=== PATIENT | female | born 1995 | race Caucasian/White ===

== ENCOUNTER 2025-03-20 05:28 | Emergency (ER) | payer MEDICAID ==
[~2025-03-20] VITALS: Ht 167.6 cm; Wt 57.3 kg
[~2025-03-20 05:28] MED LIST: DULO60CA65 PO; LACT1CAP26 PO
--- NOTE | 2025-03-20 05:56 | Physician Documentation ---
History of Present Illness ~ Chief Complaint: Abdominal Pain w/vomiting Stated Complaint: ABD PAIN Time Seen by MD: 05:51 HPI Patient presents to the emergency room with chief complaint of abdominal pain. She has trying to hit the nurses and smacked her face on the railing because she can not take it anymore she states she would rather jump in front of a car. History limited secondary to patient's combative nature. Additional note by Kervin York DO: I took over the care of this patient from previous physician. I reviewed any previous notes available, obtain my own history, review of systems and physical examination was performed by myself. History, review of systems, physical examination are limited due to patient's clinical condition. This is a 30-year-old female who lives in [place], visiting family here, brought in by ambulance after she had a seizure-like activity while visiting relatives. She states that she does have known history of psychogenic nonepileptic seizures, for which he takes Librium. No antiepileptic medications. It is not clear what provoked his seizure-like activity, however the patient was not postictal at any point. She reports diffuse abdominal pain, moderate to severe in its intensity, chronic, does report history of chronic constipation after cholecystectomy. Reports recent admission to hospital in [place] when she states five days there. The particular palliating or aggravating factors. She treats it with the pain medication as well as ketamine that has been prescribed to her as part of for pain management. This does not seem to be helping. That the pain is so severe that she is now feeling suicidal. Would not elaborate on the plan. Evidently told the previous provider that she would rather jumped in front of the vehicle. She tells me that she does not drink, does not smoke, does not do drugs. Medication Reconciliation Allergies: Coded Allergies: bupropion (Verified Allergy, Intermediate, BAD THOUGHTS AND RASH, 03/20/25) furosemide (Verified Allergy, Unknown, 03/20/25) gluten (Unverified Allergy, Unknown, 03/20/25) ketorolac (Verified Allergy, Unknown, 03/20/25) Uncoded Allergies: WELBUTRIN (Allergy, Unknown, 03/20/25) Scheduled Duloxetine HCl (Duloxetine HCl), 60 MG PO DAILY, (Reported) Lactobacillus Rhamnosus (Culturelle), 10,000 MMU PO TID@0830,1230,1730 Review of Systems ROS Review of systems limited secondary to patient's clinical condition Physical Exam Vital Signs: Heart Rate: 68, Respiratory Rate: 16, BP: 116/65, Pulse Oximetry: 99, Weight: 57.270 Physical Exam GENERAL: Awake, alert, oriented, GCS 15, no apparent distress, non-toxic appearing, answers questions in the rather limited fashion, does not not follows commands appropriately. Initial examined in bed 2., was placed in bed 16. For close observation HEENT: Atraumatic, normocephalic, pupils equal, extraocular muscles intact, sclerae anicteric, mucus membranes moist, oropharynx is clear, no stridor. NECK: supple, full active range of motion, trachea midline, no thyromegaly, no lymphadenopathy, no JVD. CARDIOVASCULAR: regular rate/rhythm, no murmurs/gallops/rubs, Pulses are 2+ in all extremities and symmetric. Capillary refill less than 2 seconds. PULMONARY: Nonlabored, good air movement ,no respiratory distress, speaking in full sentences, clear to auscultation bilaterally, no wheezing, no ronchi, no rales, no accessory muscle use. GASTROINTESTINAL: Soft, non-tender, non-distended, normal active bowel sounds, no organomegaly, no pulsatile masses, no CVA tenderness. NEUROLOGIC: Lucid with normal mental status. Normal facial symmetry. Moves all extremities symmetrically and with purpose. No truncal ataxia. Speech is fluid without evidence of dysarthria or aphasia, no focal deficits appreciated. MUSCULOSKELETAL: There is full range of motion of all extremities. There is no joint pain or joint swelling or joint erythema. There is no muscle pain or tenderness or swelling. EXTREMITIES: warm, well-perfused, no cyanosis, no clubbing, no edema, no acute deformities. Skin: warm, dry, no rashes or lesions, no jaundice, no petechiae orpurpura. No ecchymosis. PSYCHIATRIC: Hostile affect, poor insight, poor concentration. Focused exam: [Actively suicidal, attempts to hit her head or her knees, climb out of bed, fight nurses, hit nurses] Progress Results/Orders Results/Orders Orders - GERMAIN CARVER MD Saline Lock (03/20/25 05:33) Straight Cath For Urine Sample (03/20/25 05:33) Type And Screen (03/20/25 05:42) Med Rec (03/20/25 05:52) 1799.11 (03/20/25 05:52) Close Observation Level (03/20/25 05:52) Covid19 Binax Poc Result Entry (03/20/25 05:52) Substance Use Navigator (03/20/25 05:52) Regular Diet (03/20/25 Breakfast) Acetaminophen 325mg Tablet (Tylenol Tabl (03/20/25 18:50) Ibuprofen Tablet (Motrin Tablet) (03/20/25 18:54) Completed Orders - GERMAIN CARVER MD Hcg, Ur Ql (03/20/25 05:33) Cbc/Diff (03/20/25 05:33) Lipase (03/20/25 05:33) CMP (03/20/25 05:33) Drug Screen, Urine (03/20/25 05:52) Ethanol (03/20/25 05:52) TSH (03/20/25 05:52) BMP (03/20/25 05:52) Haloperidol Lact. (Haldol) (03/20/25 05:55) Lorazepam Inj (Ativan Inj) (03/20/25 05:55) Diphenhydramine Inj (Benadryl Inj.) (03/20/25 05:55) Ua W/Microscopic, Cult If Ind (03/20/25 10:54) Ibuprofen Tablet (Motrin Tablet) (03/20/25 18:50) Medications Received in ER Medications (Trade) Dose Ordered Sig/Mahnaz Route PRN Reason Start Time Stop Time Status Last Admin Dose Admin (Haldol) 5 mg ONCE ONCE IM 03/20/25 11:00 03/20/25 11:04 DC 03/20/25 11:09 5 MG (Ativan inj) 2 mg ONCE ONCE IM 03/20/25 11:00 03/20/25 11:04 DC 03/20/25 11:09 2 MG (Dilaudid inj.) 1 mg ONCE ONCE IV 03/20/25 11:25 03/20/25 11:27 DC 03/20/25 11:45 1 MG (Dilaudid inj.) 1 mg ONCE ONCE IV 03/20/25 15:35 03/20/25 15:37 DC 03/20/25 15:42 1 MG Vital Signs 03/20/25 03/20/25 03/20/25 03/20/25 05:32 05:42 06:00 06:49 Temp 98.6 Pulse 68 68 57 Resp 16 16 16 18 B/P (MAP) 116/65 116/65 (82) 115/75 (88) Pulse Ox 99 99 100 O2 Flow Rate 0 03/20/25 03/20/25 03/20/25 03/20/25 06:49 07:44 08:00 08:15 Temp 98.6 Pulse 57 62 57 80 Resp 18 20 17 14 B/P (MAP) 115/75 (88) 115/74 (88) 119/74 (89) 111/74 (86) Pulse Ox 100 100 100 100 O2 Flow Rate 0 0 03/20/25 03/20/25 03/20/25 03/20/25 08:21 08:30 08:45 09:00 Temp 98.6 98.6 98.6 Pulse 86 73 64 Resp 20 12 21 20 B/P (MAP) 119/70 (86) 109/68 (82) 115/81 (92) Pulse Ox 99 100 98 O2 Flow Rate 0 0 0 03/20/25 03/20/25 03/20/25 03/20/25 09:08 09:51 11:55 12:10 Pulse 76 69 98 108 Resp 10 13 21 18 B/P (MAP) 115/81 (92) 121/73 (89) 96/59 (71) 97/59 (72) Pulse Ox 99 99 96 95 03/20/25 03/20/25 03/20/25 03/20/25 12:25 12:33 12:45 13:02 Temp 98.0 98.0 Pulse 99 105 97 102 Resp 18 12 17 12 B/P (MAP) 96/64 (75) 96/64 (75) 101/67 (78) Pulse Ox 97 97 96 99 O2 Flow Rate 0 0 0 03/20/25 03/20/25 03/20/25 03/20/25 13:55 14:09 15:25 15:42 Pulse 92 89 111 Resp 18 17 18 11 B/P (MAP) 99/67 (78) 107/68 (81) 94/56 (69) Pulse Ox 98 98 98 O2 Flow Rate 0 03/20/25 15:43 Pulse 86 Resp 10 B/P (MAP) 100/63 (75) Pulse Ox 98 Laboratory Tests Test 03/20/25 07:00 03/20/25 10:54 White Blood Count 6.5 Red Blood Count 3.08 L Hemoglobin 8.7 L Hematocrit 27.4 L Mean Corpuscular Volume 89.0 Mean Corpuscular Hemoglobin 28.3 Mean Corpuscular Hemoglobin Concent 31.8 L Red Cell Distribution Width 20.4 H Platelet Count 290 Mean Platelet Volume 8.4 Neutrophils (%) (Auto) 70.7 Lymphocytes (%) (Auto) 22.4 Monocytes (%) (Auto) 5.1 Eosinophils (%) (Auto) 0.9 Basophils (%) (Auto) 0.9 Neutrophils # (Auto) 4.6 Lymphocytes # (Auto) 1.5 Monocytes # (Auto) 0.3 Eosinophils # (Auto) 0.1 Basophils # (Auto) 0.1 CBC Comment Platelet Estimate Normal Large Platelets Few Red Blood Cell Morphology Perf Hypochromasia 1+ Basophilic Stippling Anisocytosis 3+ Sodium Level 144 Potassium Level 3.3 L Chloride Level 108 H Carbon Dioxide Level 24.6 Anion Gap 11 Blood Urea Nitrogen 8 Creatinine 0.68 Estimated GFR/1.73 m2 > 90 BUN/Creatinine Ratio 11.8 Glucose Level 122 H Calcium Level 8.3 L Total Bilirubin 0.3 Aspartate Amino Transf (AST/SGOT) 18 Alanine Aminotransferase (ALT/SGPT) 22 Alkaline Phosphatase 85 Total Protein 6.8 Albumin 3.6 Globulin 3.2 Albumin/Globulin Ratio 1.1 Lipase 18 Thyroid Stimulating Hormone (TSH) 0.38 Chemistry Comments Ethyl Alcohol Level 131 H Urine Specimen Description Non-specified Urine Color Straw Urine Clarity Cloudy Urine pH 6.5 Urine Specific Parker 1.020 Urine Protein Negative Urine Glucose (UA) Negative Urine Ketones Trace H Urine Occult Blood Negative Urine Nitrite Negative Urine Bilirubin Negative Urine Urobilinogen 0.2 Urine Leukocyte Esterase Negative Urine RBC 3-10 Urine WBC 0-4 Urine Squamous Epithelial Cells Many Urine Transitional Epithelial Cells Moderate Urine Bacteria 1+ Urine Culture Indicated Not ind Volume Urine Centrifuged 10 ml Urine HCG, Qualitative Negative Urine Comment Urine Opiates Screen Positive Urine Methadone Screen Negative Urine Fentanyl Screen Negative Urine Barbiturates Screen Negative Urine Phencyclidine Screen Negative Urine Amphetamines Screen Negative Urine Benzodiazepines Screen Positive Urine Cocaine Screen Negative Urine Cannabinoids Screen Drug Screen Comment EKG/XRAY/CT/US/VASC/MRI EKG : Additional Comment EKG was obtained and interpreted by myself shows sinus arrhythmia, CT interval of 108, narrow QRS, no QT prolongation, normal axis, no STEMI. Medical Decision Making Findings Patient presents to the emergency room with chief complaint of abdominal pain as well as suicidal ideation secondary to the abdominal pain. Patient is swinging at our nurses in his requiring B 52 along with restraints. She does endorse some degree of suicidality therefore 1798 placed. Oncoming doctor to follow up labs and medical clearance. Facility Status: ED Holds, RME process The plan was discussed with the patient, who demonstrates clear understanding of the plan and is in agreement with the plan unless otherwise noted in the chart. All questions have been answered, all concerns were addressed unless otherwise documented. I was available throughout their ED stay for frequent reassessment and questions. Differential Diagnoses (considered and possible or likely): [With respect to abdominal pain, Differential diagnosis considered includes acute appendicitis, acute cholecystitis, pancreatitis, gastritis, PUD, diverticulitis, mesenteric ischemia, abdominal aortic aneurysm, bowel obstruction, enteritis, colitis, fecal impaction, volvulus, IBS, inflammatory bowel disease, specific food intolerance, peritonitis, perforated viscous, malignancy, UTI, abscess, and abdominal pain NOS. Pelvic source of pain was also considered including en dometritis, dysmenorrhea, ovarian cyst, ovarian torsion, PID, TOA, cervicitis, vaginitis, or uterine fibroid. History, physical exam, and workup exclude many of the more serious causes listed above. Unfortunately patient also make suicidal statements. As noted above she required chemical restraints, physical restraints, she has a plan for suicidal attempt of walking into traffic. She was placed on 1798.] ??Differential Diagnoses (considered and unlikely, not requiring evaluation cu rrently): [See above] MDM Data Please see HPI for the following: Independent Historians and external Records Review. Historian: [Patient] Independent Historians: ?[Record review was requested from [facility] in [facility]] Medication Management: [Reviewed medication list] Social History and determinants: [Reviewed] Please see the body of the note for the following: Any independent interpretations of ECG, imaging studies. All vitals signs/haemodynamics, ordered tests were independently reviewed and interpreted by myself. Nursing triage complaint and vitals reviewed, additional nursing notes were reviewed as available and I agree unless otherwise noted or documented in contradiction in the chart Vital Signs: Independently reviewed Labs: Independently interpreted Imaging: Independently interpreted Old Medical Records: Independently reviewed, see HPI for relevant summary and information Pulse Oximetry: [100%] interpreted as [normal on room air] by me [Classification Analyst: [Regular Rate, Regular rhythm, no ectopy, NSR] reviewed and interpreted by me] Additionally notably showing: [Hemodynamics reviewed. The patient isn't febrile, not tachycardic, no evidence of hypotension respiratory distress. Laboratory studies show anemia of 8.7, normal platelets, normal white count. No neutrophilic predominance. Chemistry shows a very mild hypokalemia 3.3. Glucose is elevated in the dietary arrange. Lipase is normal. Thyroid studies are normal. Unfortunately despite patient denied use of alcohol her ethanol is 131. She is legally intoxicated. Patient is positive for benzodiazepines and opioids as expected ] Tests considered but not ordered include: [Imaging does not appear to be necessary] Social Determinants of Health Impact: [facility] with limited access to healthcare due to below par ratio of patient to medical providers. [] Comorbid Conditions Impacting Present Evaluation and Care/Treatment: [Chronic pain, opioid addiction, chronic pancreatitis, pseudoseizures] Management Discussions with other Healthcare Providers: [Mental health consult] Treatment and Disposition Medication Management (Given or considered): [Pain management, palliation of agitation]. See EMR for details Consideration for Hospitalization/Escalation/Deescalation of Care: Admission for observation has been considered, [however the patient is able to tolerate p.o., their symptoms are controlled, they are able to rely on oral medications, and their chief complaint/diagnosis can be managed on outpatient basis.] ?ED Course:?[We were able to obtain a discharge summary [facility]. The patient has known diagnosis of chronic pancreatitis, continuous opioid de pendence, she was admitted of the time for acute pancreatitis. Evidently she also has a known history of celiac disease, cannabinoid hyperemesis, alcohol use disorder. She had undergone a very extensive workup including MRI, based on elevated lipase, and diagnosed with a acute on chronic pancreatitis. She was seen by GI, undergone he you as. She required it very extensive pain palliation due to her-pain requirements. She also had a CT angio which was negative for PE.] Eventually patient was allowed to be out of restraints and behavior herself. I think all of her behavioral agitation related to her addiction to opioids and her chronic pain. Patient is medically cleared for psychiatric evaluation ?Shared decision making:?[] Code status:?FULL Please see the full Electronic Medical Record for full details of nursing documentation, medications list, other records of complete past medical history and conditions, vital signs, laboratory studies, and any radiologic study interpretations by radiologists. Portions of this note were completed using [employer] dictation software and as a result there may exist minor errors in spelling. I have reviewed elements of past family and social history and agree as included in note. Departure Disposition: 30 STILL A PATIENT Impression: Primary Impression: Abdominal pain Additional Impression: Suicidal ideation Condition: Guarded Referrals: NO PRIMARY CARE PROVIDER (PCP) Critical Care Note Critical Care Note CRITICAL CARE TIME: [35 ] minutes Treatments/Evaluations: Close monitoring and treatment of unstable vital signs, cardiorespiratory, and neurologic status, while maintaining tight balance of fluid, respiratory, and cardiac interventions. This time includes discussing the case with the patient and the patients family. This time does not include all procedures stated elsewhere in this record. This time also includes reviewing old records, labs and radiological studies. This time includes examining and re- examining the patient. Additionally, this time also includes arranging care with admitting and consulting physicians. Signature Scribe Signature: No scribe Attestation: The note accurately reflects work and decisions made by me.Germain Carver MD 03/20/25 05:56 This note accurately reflects clinical decisions, work performed by myself, Kervin York DO 03/20/25 @0637 GERMAIN CARVER MD Mar 20, 2025 05:56 KERVIN YORK DO Mar 20, 2025 06:38
[2025-03-20] MEDS: haloperidol lactate 5mg/ml inj IM ONE ×3 (06:01→19:23)
[2025-03-20] MEDS ORDERED: ziprasidone IM 20mg inj **IM only IM PRN (06:10)
[2025-03-20] MEDS: morphine 4 MG/ML inj SYRINge IV ONE (07:18)
[2025-03-20 07:25] LABS: MEAN PLATELET VOLUME 8.4 FL (7.4-10.4); RED CELL DISTRIBUTION WIDTH 20.4 % (11.5-14.5)
[2025-03-20] MEDS: ondansetron/PF 4mg/2ml inj IV ONE (07:28)
[2025-03-20 07:45] LABS: CREATININE 0.68 MG/DL (0.40-0.90); TOTAL CARBON DIOXIDE 24.6 MMOL/L (24-32); eCRCL 109 ML/MIN; eGFR > 90 ML/MIN
[2025-03-20 07:55] LABS: ETHANOL 131 MG/DL (<10)
[2025-03-20 08:19] LABS: LARGE PLATELETS FEW; PLATELET ESTIMATE NORMAL
--- NOTE | 2025-03-20 08:52 | ELECTROCARDIOGRAPH REPORT ---
[facility] Test Date: 2025-03-20 Test Time: 08:50:40 Pat Name: ALBERTO BARRETO Department: [facility] Patient ID: [facility]-[id number] Room: Gender: F Hospital Superintendent: : 1995 Requested By: LACHO YORK Order Number: [id number] Reading MD: Measurements Intervals [place] Rate: 75 P: 69 ME: 108 QRS: 60 QRSD: 102 T: 49 QT: 420 QTc: 470 Interpretive Statements Sinus arrhythmia Short ME interval Please click the below link to view image of tracing.
[2025-03-20] MEDS: normal saline 1000ml 1,000 ML IV ONE (08:54)
[2025-03-20 11:41] LABS: LEUKOCYTE ESTERASE ,URINE NEGATIVE (Neg); NITRITES, URINE NEGATIVE (Neg); OCCULT BLOOD,URINE NEGATIVE (Neg)
[2025-03-20 11:44] LABS: UA COLLECTION TYPE NON-SPECIFIED
[2025-03-20 11:46] LABS: SQUAMOUS EPITHELIAL CELL,UR MANY /LPF (FEW)
[2025-03-20 11:52] LABS: URINE HCG NEGATIVE (NEG)
[2025-03-20 12:38] LABS: URINE AMPHETAMINE SCREEN NEGATIVE (Neg); URINE BARBITUATE SCREEN NEGATIVE (Neg); URINE BENZODIAZEPINES SCREEN POSITIVE (Neg); URINE COCAINE SCREEN NEGATIVE (Neg); URINE METHADONE SCREEN NEGATIVE (Neg); URINE OPIATE SCREEN POSITIVE (Neg); URINE PHENCYCLIDINE SCREEN NEGATIVE (Neg)
[2025-03-20] MEDS ORDERED: ibuprofen tablet 400 MG TABLET PO PRN (18:50)
[2025-03-20] MEDS ORDERED: morphine ER 100mg tablet PO SCH (21:05)
[2025-03-20] MEDS: morphine ER 30mg tablet PO SCH (21:53)
[2025-03-21 05:07] VITALS: PULSE 84
[2025-03-21] MEDS ORDERED: iohexol 300mg/ml 100ml inj. ONE (08:20)
--- NOTE | 2025-03-21 09:45 | RADIOLOGY REPORT ---
CT CT ABDOMEN PELVIS W/ IV CONTRAST INDICATION: abd pain, hx of pacreattisi EXAM DATE: 03/21/2025 09:01 AM COMPARISON: None RADIATION DOSE: CTDIvol: 8 mGy, DLP: 462 mGy*cm PROCEDURE: Helical CT images were obtained of the abdomen and pelvis with IV contrast Sagittal and co barb reconstructions are provided. ORAL CONTRAST: None. ADDITIONAL IMAGES / REFORMATS: None All CT s cans at this medical facility are performed using dose modulation techniques as appropriate to a perf ormed exam including the following: Automated exposure control was utilized; adjustment of the MA and /or KV according to patient size; and use of iterative reconstruction technique. FINDINGS: LUNG BASE: Normal. LIVER: Normal. GALLBLADDER AND BILIARY TREE: No calcified gallstones. Normal caliber wall. No intra- or extrahepatic biliary ductal dilation. PANCREAS: Normal. SPLEEN: Normal. BOWEL: Normal. Normal appendix. ADRENALS: Normal. KIDNEYS AND URETER: Punctate nonobstructive bilateral kidney stone. BLADDER: Normal. REPRODUCTIVE ORGANS: Small bilateral ovary cysts measures up to 2.1 cm on the right. LYMPH NODES:No lymphadenopathy. PERITONEUM: No ascites or free air. No other fluid collection. Trace pelvic fluid, physiologic. VESSELS: Scattered atherosclerotic calcifications are noted. RETROPERITONEUM: Normal. ABDOMINAL WALL: Normal. BONES: Scattered osseous degenerative changes are noted. IMPRESSION: No acute intraabdominal abnormality. Pancreas appears normal. Punctate nonobstructive bilateral kidney stone.
[2025-03-21 12:44] VITALS: BP 100/56; RESP 20; TEMP 99.7; O2SAT 97
== END 2025-03-21 12:18 ==
LOC: ER 05:28
DX: R10.9 Unspecified abdominal pain (principal); R45.851 Suicidal ideations; Z88.8 Allergy status to other drugs, medicaments and biological substances; Z79.899 Other long term (current) drug therapy
CPT/HCPCS: 36415; 74177; 80053; 80305; 80320; 81001; 81025; 83690; 84443; 85025; 93005; 96361; 96372; 96374; 96375; 96376; 99285; J1171; J1200; J1630; J2060; J2270; J2405; J7030; L0172; Q9967; 85008; A4353; A6449; C1758

== ENCOUNTER 2025-04-06 19:16 | Inpatient (IN) | payer MEDICAID ==
[~2025-04-06] VITALS: Ht 170.2 cm; Wt 63.6 kg
--- NOTE | 2025-04-06 19:29 | Physician Documentation ---
History of Present Illness ~ Chief Complaint: Overdose Stated Complaint: OD Time Seen by MD: 19:24 OK to notify your PCP?: Yes Source: RN/MD, EMS, RN notes reviewed, EMS notes reviewed, old records Exam Limitations: clinical condition HPI 30 year old female with a history of substance abuse seen in bed 14 presents to the emergency department via EMS for complaints of an overdose. Per EMS patient is on alcohol, specifically vodka, and possibly hydroxyzine, quetiapine, and morphine. EMS state that these medications were found empty at her residence. Patients grandmother was the one who called EMS stating that the overdose was intentional but when asked the patient denies suicidal ideation. Per patient she only endorses pain in her pancreas. Medication Reconciliation Allergies: Coded Allergies: bupropion (Verified Allergy, Intermediate, BAD THOUGHTS AND RASH, 03/20/25) furosemide (Verified Allergy, Unknown, 03/20/25) gluten (Unverified Allergy, Unknown, 03/20/25) ketorolac (Verified Allergy, Unknown, 03/20/25) Uncoded Allergies: WELBUTRIN (Allergy, Unknown, 03/20/25) Scheduled Duloxetine Hcl* (Cymbalta*), 40 MG PO DAILY, (Reported) Lactobacillus Rhamnosus (Culturelle), 10,000 MMU PO TID@0830,1230,1730 Melatonin (Melatonin), 2 TAB PO HS, (Reported) Quetiapine Fumarate (Seroquel), 1 TAB PO HS, (Reported) Scheduled PRN Hydroxyzine Hcl (Atarax), 50 MG PO TID PRN for for anxiety/agitation, (Reported) Discontinued Medications Duloxetine HCl (Duloxetine HCl), 60 MG PO DAILY, (Reported) Discontinued Reason: patient no longer taking Gabapentin (Gabapentin), 1 CAP PO TID, (Reported) Discontinued Reason: patient no longer taking Ondansetron 8mg ODT (Ondansetron Odt), 1 TAB PO BID, (Reported) Discontinued Reason: patient no longer taking Review of Systems All Other Systems at this time: Reviewed and Negative ROS As stated above in the HPI, otherwise all systems are reviewed and negative. Physical Exam Vital Signs: RN Vital Signs have been reviewed: Yes, Heart Rate: 126, Respira tory Rate: 15, BP: 108/60, Pulse Oximetry: 96, Weight: 63.640 Oxygen Flow Rate: 0 Pulse Oximetry Reflects: adequate oxygenation Physical Exam General: Patient addgitated but is answering questions. The patient is well developed, well nourished, nontoxic appearing and is in no acute distress. Skin: Skin is warm to touch. [place], warm and dry with no rashes. HEENT: Head was normocephalic and atraumatic. Eyes - pupils equal, round, reactive to light and accommodation. Extraocular movements were intact. Conjunctivae were nonicteric. Ears - bilateral tympanic membranes were normal. The mouth and oropharynx were clear with moist mucous membranes. There were no pharyngeal exudates or erythema. Neck: Supple and nontender. There was no jugular venous distention, lymphadenopathy, thyromegaly or masses. Chest: Clear to auscultation bilaterally without wheezes, rales or rhonchi. No accessory muscle use. No dullness to percussion. Heart: Rapid desai rate. S1, S2. No murmurs. Palpation of the chest wall was normal. No rubs or thrills. Abdomen: Soft, nontender and nondistended. Positive bowel sounds. No guarding or rebound. No hepatosplenomegaly or palpable masses. Extremities: No cyanosis, clubbing or edema. The patient moves all extremities. Pulses were equal and symmetric. Neurologic: Cranial nerves II-XII were intact. Sensation was intact to light touch throughout. Motor strength was 5/5 in all four extremities. Deep tendon reflexes were intact in both upper and lower extremities. Psychologic: Poor decision making. She denies any suicidal ideations or self magallanes rm. The patient was oriented to person, place and time. Progress Progress Note Patient will be medically cleared for mental health hold at 0600 due to proclamations that she wants to kill herself. Results/Orders Reviewed/noted all lab results: Yes Results/Orders Orders - DWAYNE HORN MD Electrocardiogram (04/06/25 19:24) Accucheck (04/06/25 19:24) Chest,Single View (04/06/25 19:24) Monitor (04/06/25 19:24) Saline Lock (04/06/25 19:24) * Npo Until Passed Bedside Swa (04/06/25 19:24) Straight Cath For Urine Sample (04/06/25 19:24) Behavioral Restraints (04/06/25 ) General Nursing Order (04/06/25 19:27) 1799.11 (04/06/25 23:16) Close Observation Level (04/06/25 23:16) Covid19 Binax Poc Result Entry (04/06/25 23:16) Behavioral Restraints (04/07/25 ) Cult Urine + [address] (04/07/25 08:06) Regular Diet (04/07/25 Lunch) Completed Orders - DWAYNE HORN MD Electrocardiogram (04/06/25 19:24) Cbc/Diff (04/06/25 19:24) Chest,Single View (04/06/25 19:24) Ethanol (04/06/25 19:24) Ammonia (04/06/25 19:24) Drug Screen, Urine (04/06/25 19:24) BMP (04/06/25 19:24) Lipase (04/06/25 19:26) MG (04/06/25 19:26) Hcg, Ur Ql (04/06/25 19:26) Pt Inr (04/06/25 19:26) PTT (04/06/25 19:26) Liver Panel (04/06/25 19:26) Acetaminophen (04/06/25 19:50) Salicylate (04/06/25 19:50) TSH (04/06/25 19:50) Haloperidol Lact. (Haldol) (04/07/25 00:10) Diphenhydramine Inj (Benadryl Inj.) (04/07/25 00:10) Haloperidol Lact. (Haldol) (04/07/25 04:25) Diphenhydramine Inj (Benadryl Inj.) (04/07/25 04:25) Lorazepam Inj (Ativan Inj) (04/07/25 04:25) Ua W/Microscopic, Cult If Ind (04/07/25 07:43) Medications Received in ER Medications (Trade) Dose Ordered Sig/Mahnaz Route PRN Reason Start Time Stop Time Status Last Admin Dose Admin (ROXanol 10mg/ 0.5ml concentrated oral avni.) 20 mg Q5H PRN PO moderate or severe pain 4-10 04/07/25 11:30 04/07/25 11:35 20 MG (Haldol) 5 mg ONCE ONCE IM 04/07/25 12:00 04/07/25 12:03 DC 04/07/25 12:15 5 MG (Benadryl inj.) 50 mg ONCE ONCE IM 04/07/25 12:00 04/07/25 12:03 DC 04/07/25 12:15 50 MG (ZyPREXA I.M. IM ONLY) 10 mg ONCE ONCE IM 04/07/25 14:20 04/07/25 14:25 DC 04/07/25 14:44 10 MG (Zofran ODT tablet) 4 mg ONCE ONCE PO 04/07/25 15:45 04/07/25 15:49 DC 04/07/25 15:54 4 MG Vital Signs 04/06/25 04/06/25 04/06/25 04/06/25 19:19 19:35 19:39 19:51 Temp 98.2 98.4 Pulse 126 92 86 Resp 15 18 16 18 B/P (MAP) 108/60 122/60 (80) 98/62 (74) Pulse Ox 96 97 98 O2 Flow Rate 0 0 0 04/06/25 04/06/25 04/06/25 04/06/25 20:06 20:21 20:36 20:51 Temp 98.4 98.3 98.4 98.2 Pulse 90 88 90 92 Resp 18 20 18 14 B/P (MAP) 104/64 (77) 110/67 (81) 108/66 (80) 96/73 (81) Pulse Ox 98 98 98 99 O2 Flow Rate 0 0 0 0 04/06/25 04/06/25 04/06/25 04/06/25 21:06 21:22 21:37 21:53 Temp 98.4 98.3 98.3 98.1 Pulse 70 74 88 80 Resp 18 20 20 22 B/P (MAP) 104/70 (81) 98/66 (77) 105/71 (82) 107/70 (82) Pulse Ox 98 99 99 99 O2 Flow Rate 0 0 0 0 04/06/25 04/06/25 04/06/25 04/06/25 22:08 22:23 22:38 22:53 Temp 98.2 98.1 98.4 98.4 Pulse 78 90 72 72 Resp 12 22 22 16 B/P (MAP) 104/74 (84) 106/72 (83) 108/78 (88) 102/69 (80) Pulse Ox 99 99 99 99 O2 Flow Rate 0 0 0 0 04/06/25 04/06/25 04/06/25 04/06/25 23:07 23:22 23:37 23:52 Temp 98.3 98.4 98.2 98.2 Pulse 84 84 76 90 Resp 12 12 14 18 B/P (MAP) 102/66 (78) 106/68 (81) 104/70 (81) 102/68 (79) Pulse Ox 99 99 99 99 O2 Flow Rate 0 0 0 0 04/07/25 04/07/25 04/07/25 04/07/25 00:07 00:21 00:36 00:51 Temp 98.4 98.0 98.2 98.3 Pulse 80 92 74 80 Resp 18 18 18 18 B/P (MAP) 100/66 (77) 96/62 (73) 95/62 (73) 99/66 (77) Pulse Ox 99 99 99 99 O2 Flow Rate 0 0 0 0 04/07/25 04/07/25 04/07/25 04/07/25 01:05 01:20 01:35 04:37 Temp 98.0 98.2 98.2 98.4 Pulse 73 81 92 Resp 19 19 19 18 B/P (MAP) 93/62 (72) 93/60 (71) 93/60 (71) 98/58 (71) Pulse Ox 99 99 99 99 O2 Flow Rate 0 0 0 0 04/07/25 04/07/25 04/07/25 04/07/25 04:52 05:07 05:23 05:38 Temp 98.1 98.4 98.2 98.2 Pulse 96 94 90 92 Resp 16 20 22 18 B/P (MAP) 92/62 (72) 103/57 (72) 97/61 (73) 98/58 (71) Pulse Ox 99 99 99 99 O2 Flow Rate 0 0 0 0 04/07/25 04/07/25 04/07/25 04/07/25 05:53 06:08 06:28 06:52 Temp 98.0 98.4 98.4 98.2 Pulse 88 96 87 88 Resp 22 27 25 B/P (MAP) 101/73 (82) 109/71 (84) 96/67 (77) 99/68 (78) Pulse Ox 99 99 98 99 O2 Flow Rate 0 0 04/07/25 04/07/25 04/07/25 04/07/25 07:09 07:12 07:29 07:46 Temp 98.1 98.1 98.2 Pulse 89 107 113 Resp B/P (MAP) 116/81 (93) 112/70 (84) 98/67 (77) Pulse Ox 99 99 99 04/07/25 04/07/25 04/07/25 04/07/25 08:00 08:00 08:15 08:30 Temp 98.2 98.1 98.1 Pulse 91 100 113 Resp B/P (MAP) 90/60 (70) 86/63 (71) 94/59 (71) Pulse Ox 99 99 98 04/07/25 04/07/25 04/07/25 04/07/25 08:45 09:00 12:02 12:15 Temp 98.1 98.2 97.8 97.8 Pulse 93 108 110 108 Resp B/P (MAP) 100/66 (77) 111/71 (84) 109/86 (94) 100/76 (84) Pulse Ox 98 99 99 99 04/07/25 04/07/25 04/07/25 04/07/25 12:30 12:45 12:47 13:00 Temp 97.8 97.8 97.8 Pulse 108 121 98 Resp B/P (MAP) 106/75 (85) 105/75 (85) 103/73 (83) Pulse Ox 99 99 99 04/07/25 04/07/25 04/07/25 04/07/25 13:15 13:30 13:45 14:00 Temp 97.8 97.8 97.8 97.8 Pulse 110 112 118 141 Resp B/P (MAP) 100/70 (80) 106/70 (82) 110/71 (84) 122/84 (97) Pulse Ox 99 99 99 98 O2 Flow Rate 0 04/07/25 04/07/25/04/07/25 14:15 14:30 14:53 15:00 Temp 97.8 98.1 98.4 98.4 Pulse 123 122 131 85 Resp 21 16 18 16 B/P (MAP) 112/81 (91) 132/74 (93) 123/72 (89) 101/66 (78) Pulse Ox 98 98 97 97 O2 Flow Rate 0 04/07/25 04/07/25 04/07/25 04/07/25 15:15 15:25 15:30 15:45 Temp 98.3 98.4 98.2 98.3 Pulse 109 113 107 105 Resp 16 19 20 17 B/P (MAP) 126/76 (93) 112/80 (91) 108/78 (88) Pulse Ox 98 98 97 98 04/07/25 04/07/25 04/07/25 04/07/25 16:00 16:15 16:30 16:45 Temp 98.4 98.4 98.5 98.5 Pulse 117 100 71 90 Resp 22 17 13 19 B/P (MAP) 112/81 (91) 110/76 (87) 110/74 (86) 110/75 (87) Pulse Ox 98 98 97 97 O2 Flow Rate 0 0 04/07/25 04/07/25 04/07/25 04/07/25 17:00 17:15 17:30 17:45 Temp 98.5 98.5 98.4 97.9 Pulse 79 86 116 115 Resp 15 16 13 16 B/P (MAP) 111/78 (89) 119/77 (91) 130/61 (84) 114/82 (93) Pulse Ox 98 98 98 98 O2 Flow Rate 0 0 0 0 Laboratory Tests Test 04/06/25 19:50 04/06/25 19:56 04/07/25 00:27 04/07/25 07:43 White Blood Count 7.3 Red Blood Count 3.63 L Hemoglobin 9.8 L Hematocrit 31.1 L Mean Corpuscular Volume 85.7 Mean Corpuscular Hemoglobin 27.0 Mean Corpuscular Hemoglobin Concent 31.5 L Red Cell Distribution Width 20.3 H Platelet Count 379 Mean Platelet Volume 7.9 Neutrophils (%) (Auto) 74.5 Lymphocytes (%) (Auto) 19.5 L Monocytes (%) (Auto) 4.7 Eosinophils (%) (Auto) 0.3 Basophils (%) (Auto) 1.0 Neutrophils # (Auto) 5.4 Lymphocytes # (Auto) 1.4 Monocytes # (Auto) 0.3 Eosinophils # (Auto) 0.0 Basophils # (Auto) 0.1 CBC Comment Platelet Estimate Normal Red Blood Cell Morphology Perf Basophilic Stippling Anisocytosis 3+ Prothrombin Time 10.6 INR International Normalized Ratio 1.0 Activated Partial Thromboplast Time 23 Coagulation Comments Sodium Level 144 Potassium Level 3.2 L Chloride Level 107 Carbon Dioxide Level 15.3 L Anion Gap 22 H Blood Urea Nitrogen 10 Creatinine 0.96 H Estimated GFR/1.73 m2 68 BUN/Creatinine Ratio 10.4 Glucose Level 108 H Calcium Level 8.4 L Magnesium Level 1.7 Total Bilirubin 0.3 Direct Bilirubin 0.1 Aspartate Amino Transf (AST/SGOT) 42 H Alanine Aminotransferase (ALT/SGPT) 59 Alkaline Phosphatase 182 H Ammonia 27 Total Protein 7.6 Albumin 3.8 Globulin 3.8 Albumin/Globulin Ratio 1.0 L Lipase 14 L Thyroid Stimulating Hormone (TSH) 0.19 L Chemistry Comments Salicylates Level 2.8 L Acetaminophen Level < 2.0 L Ethyl Alcohol Level 457 *H Glucometer 110 H SARS-CoV-2 Antigen (Rapid) Negative Urine Specimen Description Non-specified Urine Color Yellow Urine Clarity Slightly cloudy Urine pH 6.0 Urine Specific [place] 1.025 Urine Protein Negative Urine Glucose (UA) Negative Urine Ketones 40 H Urine Occult Blood Moderate H Urine Nitrite Positive H Urine Bilirubin Negative Urine Urobilinogen 0.2 Urine Leukocyte Esterase Trace H Urine RBC 0-2 Urine WBC 10-20 H Urine Squamous Epithelial Cells Moderate Urine Bacteria 4+ Urine Hyaline Casts 0-3 Urine Culture Indicated Indicated Volume Urine Centrifuged 10 ml Urine HCG, Qualitative Negative Urine Comment Urine Opiates Screen Positive Urine Methadone Screen Negative Urine Fentanyl Screen Negative Urine Barbiturates Screen Negative Urine Phencyclidine Screen Negative Urine Amphetamines Screen Negative Urine Benzodiazepines Screen Positive Urine Cocaine Screen Negative Urine Cannabinoids Screen Positive Drug Screen Comment Test 04/07/25 14:02 04/07/25 14:38 Glucometer 117 H White Blood Count 6.3 Red Blood Count 3.26 L Hemoglobin 8.8 L Hematocrit 27.2 L Mean Corpuscular Volume 83.6 Mean Corpuscular Hemoglobin 26.9 L Mean Corpuscular Hemoglobin Concent 32.1 L Red Cell Distribution Width 20.6 H Platelet Count 329 Mean Platelet Volume 7.5 Neutrophils (%) (Auto) 63.8 Lymphocytes (%) (Auto) 27.1 Monocytes (%) (Auto) 8.5 Eosinophils (%) (Auto) 0 Basophils (%) (Auto) 0.6 Neutrophils # (Auto) 4.0 Lymphocytes # (Auto) 1.7 Monocytes # (Auto) 0.5 Eosinophils # (Auto) 0.0 Basophils # (Auto) 0.0 CBC Comment Sodium Level 135 Potassium Level 3.6 Chloride Level 102 Carbon Dioxide Level 19.3 L Anion Gap 14 Blood Urea Nitrogen 7 Creatinine 0.80 Estimated GFR/1.73 m2 84 BUN/Creatinine Ratio 8.8 L Glucose Level 116 H Calcium Level 8.7 Total Bilirubin 0.7 Aspartate Amino Transf (AST/SGOT) 51 H Alanine Aminotransferase (ALT/SGPT) 52 Alkaline Phosphatase 161 H Total Creatine Kinase 1520 H Total Protein 6.9 Albumin 3.5 Globulin 3.4 Albumin/Globulin Ratio 1.0 L Chemistry Comments Microbiology Date/Time Source Procedure Growth Status 04/07/25 08:06 Urine Nonspecified Urine Culture - Preliminary Culture received. Resulted Re-Evaluation Re-Evaluation : Progress Patient was seen and examined. Patient was given reassurance. Patient was quite agitated heavily intoxicated also overdosing on multiple medications which did not seem likely because the patient would be intubated if taken all the medications that was said. Patient did not have pinpoint pupils from the narcotics. However the patient is breathing she required restraints and later tried to leave the ER. Was restrained a 2nd time signed out to the morning physician. Patient was not medically cleared because the excessively high level of alcohol. Patient will not be cleared until tomorrow at 4:00 p.m.. However patient is an alcoholic clearly and will be able to speak and converse well before that time. Question will be whether she will have withdrawal symptoms on top of her hospital presentation. Patient did make statements of suicidality but was vague. Patient's laboratory work was obtained. Patient's CBC is reassuring although there is some anemia with a hemoglobin of 9 and hematocrit of 31. Patient's chemistry shows a potassium of 3.2 in his CO2 slightly low at 15.3. Patient's alcohol level is 457. Tox screen positive for benzodiazepines and marijuana in addition to opiates. Patient had a dirty urine most likely contaminated with moderate squamous epithelial cells. Patient was not given antibiotics. Poison control was aware of the patient as well. Continuous peoplesoft crm developer interpretation shows sinus tachycardia heart rate 120s, abnormal, my interpretation. Pulse oximetry monitor interpretation shows normal oxygenation at 96% room air, normal, my interpretation. EKG/XRAY/CT/US/VASC/MRI Chest X-Ray : Additional Comments CHEST RADIOGRAPH Indication: aloc Technique: Single frontal view of the chest was obtained COMPARISON: None FINDINGS: Lines and Tubes: None Lungs: Clear Pleura: No effusion. No pneumothorax. Cardiomediastinal contours: Unremarkable IMPRESSION: No abnormality demonstrated. Electronically Signed by:JON BARCLAY MD Date & Time: 04/06/251952 Medical Decision Making Differential Dx:Considerations: Include: Alcohol abuse, Anxiety, Bipolar disorder, Conversion disorder, Delirium, Depression, Drug Overdose-Accidental, Drug Overdose-Intentional, Encephalopathy, Hallucinations, Personality disorder, Substance abuse, Suicidal attempt, Suidical gesture, Other Departure Disposition: 30 STILL A PATIENT Impression: Primary Impression: Alcoholic intoxication Qualified Codes: F10.929 - Alcohol use, unspecified with intoxication, unspecified Additional Impressions: Polysubstance abuse Danger to self Overdose Qualified Codes: T50.904A - Poisoning by unspecified drugs, medicaments and biological substances, undetermined, initial encounter Condition: Fair Discharge Instructions: Overdose, Adult Additional Instructions: Transfer orders for [facility]: At this time there is no evidence of an emergent medical condition that would preclude (admission/transfer) to a psychiatric unit via [facility] protocol for further psychiatric, as well as medical evaluation and treatment. At this time I have no reason to believe that transfer via [facility] protocol would have serious medical compromise in the patient's health. Referrals: NO PRIMARY CARE PROVIDER (PCP) Education Educated: Patient Educated regarding: diagnosis Critical Care Note Total Time (mins): 30 Critical Care Note The very real possibility of a deterioration of this patient's condition required the highest level of my preparedness for sudden, emergent intervention. I provided critical care services, which included medication orders, frequent reevaluations of the patient's condition and response to treatment, ordering and reviewing test results, and discussing the case with various consultants. E xcludes time spent performing separately billable procedures. The critical care time associated with the care of the patient was 30. Signature Scribe Signature: Scribed for Dwayne Horn MD by Jhon Mcginnis . 04/06/25 19:35 Attestation: The note accurately reflects work and decisions made by me.Dwayne Horn MD 04/07/25 19:01 DWAYNE HORN MD Apr 06, 2025 19:29 JHON ELAINE Apr 06, 2025 19:35
--- NOTE | 2025-04-06 19:32 | ELECTROCARDIOGRAPH REPORT ---
[facility] Test Date: 2025-04-06 Test Time: 19:30:56 Pat Name: ALBERTO BARRETO Department: [facility] Patient ID: [id number] Room: Gender: F [employer] Research Scientist: : 1995 Requested By: CHINO GAMING Order Number: [id number] Reading MD: Dr. Chino Gaming Measurements Intervals [place] Rate: 99 P: 79 VT: 87 QRS: 69 QRSD: 119 T: 55 QT: 390 QTc: 501 Interpretive Statements Sinus rhythm Incomplete right bundle branch block ST depression, consider ischemia, diffuse lds Electronically Signed On 04-06-2025 21:39:[address] Chino Gaming Please click the below link to view image of tracing.
--- NOTE | 2025-04-06 19:55 | RADIOLOGY REPORT ---
CHEST RADIOGRAPH Indication: aloc Technique: Single frontal view of the chest was obtained COMPARISON: None FINDINGS: Lines and Tubes: None Lungs: Clear Pleura: No effusion. No pneumothorax. Cardiomediastinal contours: Unremarkable IMPRESSION: No abnormality demonstrated.
[2025-04-06 20:04] LABS: MEAN PLATELET VOLUME 7.9 FL (7.4-10.4); RED CELL DISTRIBUTION WIDTH 20.3 % (11.5-14.5)
[2025-04-06 20:21] LABS: APTT 23 SECONDS (22-32); INR 1.0 INR
[2025-04-06 20:29] LABS: CREATININE 0.96 MG/DL (0.40-0.90); TOTAL CARBON DIOXIDE 15.3 MMOL/L (24-32); eCRCL 83 ML/MIN; eGFR 68 ML/MIN
[2025-04-06 20:36] LABS: PLATELET ESTIMATE NORMAL
[2025-04-06 20:49] LABS: ETHANOL 457 MG/DL (<10)
[2025-04-07] MEDS: haloperidol lactate 5mg/ml inj IM ONE ×3 (00:12→12:15)
[2025-04-07 07:53] LABS: LEUKOCYTE ESTERASE ,URINE TRACE (Neg); NITRITES, URINE POSITIVE (Neg); OCCULT BLOOD,URINE MODERATE (Neg)
[2025-04-07 07:54] LABS: URINE HCG NEGATIVE (NEG)
[2025-04-07 08:02] LABS: UA COLLECTION TYPE NON-SPECIFIED
[2025-04-07 08:05] LABS: SQUAMOUS EPITHELIAL CELL,UR MODERATE /LPF (FEW)
[2025-04-07 08:06] LABS: HYALINE CASTS 0-3 /LPF (NEGATIVE)
[2025-04-07 08:10] LABS: URINE AMPHETAMINE SCREEN NEGATIVE (Neg); URINE BARBITUATE SCREEN NEGATIVE (Neg); URINE BENZODIAZEPINES SCREEN POSITIVE (Neg); URINE CANNABINOID SCREEN POSITIVE (Neg); URINE COCAINE SCREEN NEGATIVE (Neg); URINE METHADONE SCREEN NEGATIVE (Neg); URINE OPIATE SCREEN POSITIVE (Neg); URINE PHENCYCLIDINE SCREEN NEGATIVE (Neg)
[2025-04-07] MEDS ORDERED: morphine oral 20mg/ml (conc. morphine) 1ml oral syringe PO PRN (11:15)
[2025-04-07] MEDS ORDERED: ONDA-245 PO (11:28)
[2025-04-07] MEDS ORDERED: DULO20CA50 PO (11:28)
[2025-04-07] MEDS ORDERED: MELA5TAB66 PO (11:28)
[2025-04-07] MEDS ORDERED: QUET25TA PO (11:28)
[2025-04-07] MEDS ORDERED: GABA-535 PO (11:28)
[2025-04-07] MEDS ORDERED: HYDR-3686 PO (11:28)
[2025-04-07] MEDS: morphine 10mg/0.5ml (conc. morphine) oral syringe PO PRN (11:35)
[2025-04-07] MEDS: OLANZapine **IM** 10 mg inj. IM ONE (14:44)
[2025-04-07 14:47] LABS: MEAN PLATELET VOLUME 7.5 FL (7.4-10.4); RED CELL DISTRIBUTION WIDTH 20.6 % (11.5-14.5)
[2025-04-07 14:58] LABS: CREATININE 0.80 MG/DL (0.40-0.90); TOTAL CARBON DIOXIDE 19.3 MMOL/L (24-32); eCRCL 100 ML/MIN; eGFR 84 ML/MIN
[2025-04-07] MEDS: ondansetron 4mg rapidly disintigrating tab PO ONE (15:54)
[2025-04-07] MEDS ORDERED: MORP100S7 PO (20:02)
[2025-04-08] MEDS: multivitamins, therapeutics tablet PO SCH (09:23)
[2025-04-08] MEDS: haloperidol lactate 5mg/ml inj IM PRN (10:02)
[2025-04-08] MEDS: OLANZapine **IM** 10 mg inj. IM ONE (11:31)
[2025-04-08] MEDS: ketorolac trometh 15mg/ml vial 15 MG/ML ML IV ONE (12:20)
[2025-04-08] MEDS: ketamine 10mg/ml 20ml inj 45 MG in normal saline 100ml IV soln 100 ML IV ONE ×2 (12:37→17:14)
[2025-04-08] MEDS ORDERED: KETAMINE IV ONE (16:35)
[2025-04-08] MEDS ORDERED: NORMAL SALINE IV ONE (16:35)
[2025-04-08] MEDS: morphine 10mg/0.5ml (conc. morphine) oral syringe PO PRN (19:09)
[2025-04-08] MEDS ORDERED: QUET100T34 PO (21:31)
[2025-04-08] MEDS ORDERED: MORPHINE 20 MG/ML PO PRN (21:35)
[2025-04-09] MEDS: haloperidol lactate 5mg/ml inj IM ONE (01:00)
[2025-04-09] MEDS: normal saline 1000ML IV soln IVB ONE ×2 (03:06→05:42)
[2025-04-09] MEDS: morphine 10mg/0.5ml (conc. morphine) oral syringe PO PRN (03:37)
[2025-04-09 04:25] LABS: MEAN PLATELET VOLUME 8.1 FL (7.4-10.4); RED CELL DISTRIBUTION WIDTH 20.4 % (11.5-14.5)
[2025-04-09 04:47] LABS: CREATININE 0.65 MG/DL (0.40-0.90); MYOGLOBIN 861.0 ng/ml (9-82); TOTAL CARBON DIOXIDE 24.6 MMOL/L (24-32); eCRCL 123 ML/MIN; eGFR > 90 ML/MIN
[2025-04-09] MEDS: CefTRIAXone 2gm/D5W 50ml BAG 50 ML IV ONE (05:09)
[2025-04-09] MEDS: sodium bicarbonate (8.4%) 1 mEq/ml syringe IV ONE (05:17)
[2025-04-09] MEDS: duloxetine 20mg capsule.DR PO SCH (08:19)
[2025-04-09] MEDS ORDERED: magnesium Cl slow-release 64mg tablet PO PRN (12:40)
[2025-04-09] MEDS ORDERED: potassium Cl 40MEQ/1/2NS 520ml 520 ML IV PRN (12:40)
[2025-04-09] MEDS ORDERED: magnesium sulf-water 2g/50mL 50 ML IV PRN (12:40)
[2025-04-09] MEDS ORDERED: magnesium hydroxide 30ml (MOM) UD suspension PO PRN (12:40)
[2025-04-09] MEDS ORDERED: dextrose 50%-water 50ml dispensing syringe IV PRN (12:40)
[2025-04-09] MEDS ORDERED: mag hydrox/Alum hydrox/simeth 30ml oral suspension PO PRN (12:40)
[2025-04-09] MEDS ORDERED: potassium Cl 20 mEq SR tablet PO PRN (12:40)
[2025-04-09] MEDS ORDERED: magnesium sulf-water 4G/100mL 100 ML IV PRN (12:40)
[2025-04-09] MEDS: normal saline 1000ml 1,000 ML IV ONE (12:50)
[2025-04-09] MEDS: thiamine 100mg/ml 2ml inj. IV SCH (15:19)
[2025-04-09] MEDS: pantoprazole 40mg Tablet.DR PO ONE (15:20)
[2025-04-09] MEDS: ondansetron/PF 4mg/2ml inj IV PRN (15:26)
[2025-04-09] MEDS: folic acid 1mg/0.2ml inj IV SCH (15:30)
[2025-04-09 16:15] VITALS: BP 121/76; PULSE 68; RESP 16; TEMP 98.6; O2SAT 97
[2025-04-09 17:02] LABS: MEAN PLATELET VOLUME 8.0 FL (7.4-10.4); RED CELL DISTRIBUTION WIDTH 20.6 % (11.5-14.5)
--- NOTE | 2025-04-09 17:29 | HISTORY AND PHYSICAL-Residence ---
History & Physical Providers to CC Resident Creating Document: FELISA PARKINSON, RES ~ History of Present Illness Primary Medical Doctor: Unknown Reason for Admit\Complaint: Elevated CK History of Present Illness The patient is a 30-year-old female was brought to the ED by EMS after she was found drowsy and suspected medication overdose by her grandmother. There were empty bottles of hydroxyzine, morphine, quetiapine present at bedside. However, patient reported that she had not taken those medications and those bottles must have been the old ones. She is a poor historian. As per the patient, she consumed a little bit of alcohol and was drowsy when her grandmother found her. She had no suicidal ideation or ideas to harm herself until she reached the hospital. In the ED, she reported that she did not receive her home pain medications and therefore she wanted to harm herself. She is extremely emotionally labile. She reports that she has chronic pancreatitis and has constant pain from it and is asking for pain medications. In the ED, poison control cleared her. Mental health unit refusing to admit the patient as she has elevated creatinine kinase. Patient being admitted for the treatment of elevated creatinine kinase. Allergies: Coded Allergies: bupropion (Verified Allergy, Intermediate, BAD THOUGHTS AND RASH, 03/20/25) furosemide (Verified Allergy, Unknown, 03/20/25) gluten (Unverified Allergy, Unknown, 03/20/25) ketorolac (Verified Allergy, Unknown, 03/20/25) Uncoded Allergies: WELBUTRIN (Allergy, Unknown, 03/20/25) Home Medications Home Medications Active Reported Quetiapine Fumarate 100 Mg Tablet 1 Tab PO HS Morphine Sulfate 100 Mg/5 Ml (20 Mg/Ml) Solution 20 Mg PO Q8H PRN Cymbalta* (Duloxetine HCl) 20 Mg Capsule.dr 40 Mg PO DAILY Atarax (Hydroxyzine Hcl) 25 Mg Tablet 50 Mg PO TID PRN Melatonin 5 Mg Tablet 2 Tab PO HS 30 Days Past Medical History Past Medical History Chronic pancreatitis Celiac disease Menstruation history: Not regular, currently on period Past Surgical History Surgical History Comment Cholecystectomy Family History Family History: Patient reports no known family medical history. Past Social History Social History Comment Patient lives in [place] with her significant other, Karl. Ambulates independently without assistance. PCP-[facility], seedavis Cornejo for pain management. Denies smoking, illicit drug abuse. Admits to rarely using alcohol. ROS All Other Systems: Reviewed and Negative ROS Reviewed and negative except for pertinent positives in HPI. Exam Vitals: Vital Signs Date Time Temp Pulse Resp B/P (MAP) Pulse Ox O2 Delivery O2 Flow Rate FiO2 04/09/25 16:06 19 04/09/25 13:00 97.6 89 112/70 (84) 100 0 General: Adult female, alert and oriented, tearful Head: Normocephalic with an atraumatic Eyes: Pupils- 3mm, reacting to light, conjunctiva- anicteric Nose and throat: No polyps, septum- normal, no mucosal ulcers Neck: Supple, no lymphadenopathy, no carotid bruit Respiratory: No use of accessory muscles of respiration, Bilateral normal vesiscular breath sounds heard. No wheeze, rhochi or creps Cardiac: S1-S2 heard, rhythm regular, no gallop/murmur Abdomen: non distended, diffuse abdominal tenderness, no organomegaly, bowel sounds - heard Extremities: no clubbing, no pedal edema, no deformities, peripheral pulses - 2+ Skin: warm and dry, no rash, no purpura Neuro: No focal deficit, gross cranial nerve exam - normal Diagnostic Data Last Recorded Lab Results: 04/09/25 1630 04/09/25 0230 Diagnostic Data: Laboratory Tests Test 04/06/25 19:50 Prothrombin Time 10.6 SECONDS (9.0-12.0) INR International Normalized Ratio 1.0 INR Activated Partial Thromboplast Time 23 SECONDS (22-32) Coagulation Comments Counseling Services Smoking & Tobacco Cessation: > 10 Minutes Advance Care Planning Advanced Care plannin - 30 Minutes (Full code by default) Additional Plan A 30-year-old female with past medical history of chronic pancreatitis and celiac disease was brought to the ED after alcohol intoxication and possible psychiatric medication overdose. She is being admitted into the hospital for further evaluation and management. Plan: Elevated creatinine kinase Possible exertional rhabdomyolysis CK elevated and up trending - latest 2015. She received 3 L of IV fluid boluses in the ED. Three more L of fluid boluses ordered. Continue ringer lactate at 150 mL/hour. Follow up with creatinine kinase in a.m. Kidney function within normal limits. Normocytic hypochromic anemia Likely combination of iron-deficiency and alcoholism Hemoglobin downtrending - 9.8-7.7. Pending FOBT. GI consulted, EGD tomorrow. NPO from midnight. Follow up with iron studies and vitamin B12. Protonix 40 mg b.i.d. IV. Alcohol use disorder Initial alcohol level 457. human services assistant and substance abuse navigator consulted. Moderate alcohol withdrawal protocol. Continue supplementation with IV folic acid and thiamine. Haldol and Ativan for agitation and restlessness. Suicidal ideation 179 daily and sitter. Once the patient is medically cleared, she will need evaluation from [facility]. Possible psychiatric medication overdose (hydroxyzine, quetiapine, morphine) Cleared by poison control. Continued home medications. Patient is constantly seeking for pain medications - continued home Roxanol. Started morphine 1 mg q.4h PRN. Code Status: Full code DVT Prophylaxis: SCDs Analgesia/Sedation: Morphine Lines/Tubes: PIV GI Prophylaxis: Protonix Nutrition: Clear liquid diet, NPO from midnight PT: Not required Prognosis: Guarded Disposition: Continue management in ortho floor. EGD tomorrow. Follow up with CK in a.m. Felisa Parkinson MD Internal Medicine Resident PGY-2 Date of Service: Apr 09, 2025 Billing Provider: ADILSON SOFIA MD,FELISA HAIRSTON, RES Apr 09, 2025 17:29
[2025-04-09] MEDS: ringers solution, lacted 1,000 ML IV SCH (17:40)
[2025-04-09] MEDS: ringers solution, lacted 1,000 ML IV ONE ×2 (17:47→23:09)
--- NOTE | 2025-04-09 17:55 | CONSULTATION REPORT - RESIDENT ---
Consult Providers to CC Resident Creating Document: JAVIERVamshiWALLY RES History of Present Illness Reason for Admit\Complaint: Overdose History of Present Illness Reason for GI consult: A noted drop in hemoglobin hematocrit and history of intermittent melena 80-year-old female with a history of alcohol use disorder and polysubstance use presented 3 days ago to the ED after reported intentional overdose. EMS found her unresponsive at home with pill bottles nearby. Her grandmother contacted emergency services. On admission, she had a serum alcohol level of 457 mg/dL and was initially somnolent but she is now alert and oriented providing limited history. She reports epigastric abdominal pain and acid reflux symptoms of the past few days. She denies hematemesis, coffee-ground emesis or melena. She attributes her discomfort to gastritis and chronic pancreatitis but has no history of prior EGD. She denies NSAIDs use. During hospitalization that hemoglobin dropped from 9.8-7.7 grams/deciliters, normocytic with elevated RDW, raising consent was subacute upper GI bleed or occult loss. She is currently hemodynamically stable and tolerating oral intake. Additional findings include CPK of 3000 myoglobin of 861 suggesting of rhabdomyolysis and creatinine normal, lipase normal, LFTs normal, UA shows UTI, test negative, toxicology positive for alcohol, opiate, benzos and THC. Allergies: Coded Allergies: bupropion (Verified Allergy, Intermediate, BAD THOUGHTS AND RASH, 03/20/25) furosemide (Verified Allergy, Unknown, 03/20/25) gluten (Unverified Allergy, Unknown, 03/20/25) ketorolac (Verified Allergy, Unknown, 03/20/25) Uncoded Allergies: WELBUTRIN (Allergy, Unknown, 03/20/25) Home Medications Home Medications Active Reported Quetiapine Fumarate 100 Mg Tablet 1 Tab PO HS Morphine Sulfate 100 Mg/5 Ml (20 Mg/Ml) Solution 20 Mg PO Q8H PRN Cymbalta* (Duloxetine HCl) 20 Mg Capsule.dr 40 Mg PO DAILY Atarax (Hydroxyzine Hcl) 25 Mg Tablet 50 Mg PO TID PRN Melatonin 5 Mg Tablet 2 Tab PO HS 30 Days Past Medical History Past Medical History Alcohol use disorder Schizophrenia Depression Suicidal ideation Past Surgical History Surgical History Comment Noncontributory Family History Family History: Patient reports no known family medical history. ROS ROS Unable to be obtained Exam Vitals: Vital Signs Date Time Temp Pulse Resp B/P (MAP) Pulse Ox O2 Delivery O2 Flow Rate FiO2 04/09/25 16:15 98.6 68 16 121/76 (91) 97 Room Air 04/09/25 13:00 0 General: Emotionally labile, in mild apparent distress HEENT: Atraumatic, normocephalic, EOMI, anicteric sclera ; pink conjunctiva Neck: Trachea midline. Supple, full range of motion, no JVD Cardiac: Regular rhythm, regular rate with no murmurs all over the precordium. Respiratory: Equal breath sounds bilaterally, no tachypnea, no wheezing ,rub or rales, Chest wall is symmetric and without deformity. Gastrointestinal: Abdomen symmetric, non-distended, soft, non-tender, normal bowel sounds x4 quadrant, normoactive, no hepatosplenomegaly Musculoskeletal: No pedal edema, no cyanosis Neurological: Could not be performed Skin: Warm and dry Diagnostic Data Last Recorded Lab Results: 04/09/25 1630 04/09/25 0230 Diagnostic Data: Laboratory Tests Test 04/06/25 19:50 Prothrombin Time 10.6 SECONDS (9.0-12.0) INR International Normalized Ratio 1.0 INR Activated Partial Thromboplast Time 23 SECONDS (22-32) Coagulation Comments Additional Plan Subacute upper GI bleed 2/2 alcohol-related gastritis Alcohol use disorder Hemoglobin dropped the setting of alcohol use and GI symptoms raise concern for peptic ulcer disease, gastritis/duodenitis or erosive esophagitis Acute pancreatitis less likely given normal lipase and absence of classic pain features and also she has no vomitings Plan EGD scheduled for tomorrow to evaluate for mucosal injury or ulcer or erosive disease. The risks and benefits of EGD including hemorrhage and perforation and need for surgical intervention in the event of fatigue complication explained to the patient. The patient understands and wishes to proceed. Further recommendations will be made after the endoscopy. Patient to be NPO from now Continue IV pantoprazole 40 mg b.i.d. Monitor CBC q.6 H Transfuse if less than 7 Pending stool occult blood test Patient would benefit from moderate alcohol withdrawal protocol with thiamine and folic acid supplementation Acute pancreatitis unlikely given normal lipase Consider ordering CT abdomen for her chronic abdominal pain in suspicion of chronic pancreatitis Rhabdomyolysis Elevated CPK and myoglobin, raising concerns for rhabdomyolysis from prolonged down thiamine overdose Aggressive IV hydration and trend CPK and renal function Avoid nephrotoxic medications Schizophrenia Depression Alcohol use disorder UTI Management per primary team Code Status: Full code DVT Prophylaxis: SCDs for now Wally Ingram MD Internal Medicine Resident, PGY-2 Sepsis Screening Reassessment Date: Apr 09, 2025 Date of Service: Apr 09, 2025 Billing Provider: LUISA BOSWELL MD, GAURAV, RES Apr 09, 2025 17:55 LUISA BOSWELL MD Apr 10, 2025 12:35
[2025-04-09 18:00] VITALS: BP 121/76; PULSE 68; RESP 16; TEMP 98.6; O2SAT 97
[2025-04-09 18:47] LABS: EOSINOPHILS % (MANUAL) 9.0 % (0-6); LYMPHOCYTES % (MANUAL) 33.0 % (21-51); MONOCYTES % (MANUAL) 11.0 % (2-12); NEUTROPHILS % (MANUAL) 47.0 % (42-75); PLATELET ESTIMATE NORMAL
[2025-04-09 20:00] VITALS: RESP 16; O2SAT 97
[2025-04-09] MEDS: K and/or MAG REPLACEMENT MC SCH (20:00)
[2025-04-09] MEDS ORDERED: pantoprazole 40mg Tablet.DR PO SCH (20:00)
[2025-04-09] MEDS: docusate sod 100mg capsule PO SCH (20:00)
[2025-04-09] MEDS: HYDROmorphone inj. 0.5 MG/0.5 ML DISP.SYRIN IV PRN (21:32)
[2025-04-09 22:00] VITALS: BP 109/71; PULSE 70; RESP 15; TEMP 98.6; O2SAT 97
[2025-04-09] MEDS: potassium Cl 20 mEq SR tablet PO PRN (23:11)
[2025-04-10] VITALS (9 sets, daily range): BP systolic 94–119; BP diastolic 66–94; PULSE 77–118; RESP 10–18; TEMP 97.3–99; O2SAT 76–100
[2025-04-10 06:02] LABS: MEAN PLATELET VOLUME 8.0 FL (7.4-10.4); RED CELL DISTRIBUTION WIDTH 20.4 % (11.5-14.5)
[2025-04-10 06:32] LABS: % IRON SATURATION 6 % (11-46)
[2025-04-10 06:43] LABS: CREATININE 0.40 MG/DL (0.40-0.90); TOTAL CARBON DIOXIDE 22.6 MMOL/L (24-32); eCRCL 200 ML/MIN; eGFR > 90 ML/MIN
[2025-04-10 07:38] LABS: EOSINOPHILS % (MANUAL) 7.0 % (0-6); LYMPHOCYTES % (MANUAL) 52.0 % (21-51); MONOCYTES % (MANUAL) 2.0 % (2-12); NEUTROPHILS % (MANUAL) 39.0 % (42-75); PLATELET ESTIMATE NORMAL
[2025-04-10] MEDS ORDERED: fentaNYL/PF 50MCG/1 ML 2ML syringe ONE (07:47)
[2025-04-10] MEDS ORDERED: MIDAZolam 1 MG/ML 5ML VIAL ONE (07:48)
[2025-04-10 07:52] LABS: OCCULT BLOOD STOOL NEGATIVE (Neg)
[2025-04-10] MEDS ORDERED: LIDOcaine 1%/PF 5ML 10 MG/ML VIAL ONE (07:58)
[2025-04-10] MEDS ORDERED: propofol inj 20 ML IV ONE (07:58)
[2025-04-10] MEDS ORDERED: LIDOcaine 2% (20mg/ml) 5ml vial ONE (07:59)
[2025-04-10] MEDS: multivitamins, therapeutics tablet PO SCH (08:00)
[2025-04-10 09:48] LABS: LACTATE DEHYDROGENASE 292 U/L (81-234)
[2025-04-10 13:15] LABS: MYOGLOBIN 268.0 ng/ml (9-82)
[2025-04-10] MEDS: sodium ferric gluc complex inj 125 MG in normal saline 100ml IV soln 100 ML IV SCH (15:24)
--- NOTE | 2025-04-10 17:52 | PROGRESS NOTE- Residence ---
Progress Note - Resident Providers to CC Resident Creating Document: FELISA PARKINSON, RES ~ Antibiotic Timeout Antibiotic Ordered?: No Subjective The patient was seen and examined at bedside today. She underwent upper GI endoscopy by Dr. Duvall this morning which showed erythematous mucosa in antrum. She is constantly seeking for pain medications especially Dilaudid. She is tearful. Objective Vital Signs Date Time Temp Pulse Resp B/P (MAP) Pulse Ox O2 Delivery O2 Flow Rate FiO2 04/10/25 14:18 15 04/10/25 12:55 Room Air 3.0 04/10/25 10:00 98.3 82 111/81 (91) 100 Result Diagram: 04/10/25 0504 04/10/25 0504 Adult female, alert and oriented, tearful Head: Normocephalic with an atraumatic Eyes: Pupils- 3mm, reacting to light, conjunctiva- anicteric Nose and throat: No polyps, septum- normal, no mucosal ulcers Neck: Supple, no lymphadenopathy, no carotid bruit Respiratory: No use of accessory muscles of respiration, Bilateral normal vesicular breath sounds heard. No wheeze, rhochi or creps Cardiac: S1-S2 heard, rhythm regular, no gallop/murmur Abdomen: non distended, diffuse abdominal tenderness, no organomegaly, bowel sounds - heard Extremities: no clubbing, no pedal edema, no deformities, peripheral pulses - 2+ Skin: warm and dry, no rash, no purpura Neuro: No focal deficit, gross cranial nerve exam - normal Coagulation Studies Laboratory Tests Test 04/06/25 19:50 Prothrombin Time 10.6 SECONDS (9.0-12.0) INR International Normalized Ratio 1.0 INR Activated Partial Thromboplast Time 23 SECONDS (22-32) Coagulation Comments Assessment Assessment A 30-year-old female with past medical history of chronic pancreatitis and celiac disease was brought to the ED after alcohol intoxication and possible psychiatric medication overdose. She is being admitted into the hospital for further evaluation and management. Plan Plan Elevated creatinine kinase Possible exertional rhabdomyolysis CK elevated and up trending - latest 2098. Myoglobin has trended down to 268. Two more boluses of ringer lactate ordered. Continue ringer lactate at 150 mL/hour. Follow up with creatinine kinase in a.m. Kidney function within normal limits. Normocytic hypochromic anemia Likely combination of iron-deficiency and alcoholism Hemoglobin downtrending - 9.8-7.6. FOBT negative. EGD done today by Dr. Duvall. Showed erythematous mucosa in antrum. No active bleeding present. Started the patient on clear liquid diet and advance as tolerated. Protonix 40 mg b.i.d. IV. Iron studies show iron-deficiency anemia. Ferrlecit IV daily. Alcohol use disorder Initial alcohol level 457. client services director and substance abuse navigator consulted. Moderate alcohol withdrawal protocol. Continue supplementation with IV folic acid and thiamine. Haldol and Ativan for agitation and restlessness. Suicidal ideation 1798 daily and sitter. Once the patient is medically cleared, she will need evaluation from [facility]. Possible psychiatric medication overdose (hydroxyzine, quetiapine, morphine) Cleared by poison control. Continued home medications. Patient is constantly seeking for pain medications - avoid excessive opiates. Currently on Morphine 2 mg IV Q4H PRN. Code Status: Full code DVT Prophylaxis: SCDs Analgesia/Sedation: Morphine Lines/Tubes: PIV GI Prophylaxis: Protonix Nutrition: Clear liquid diet, advance as tolerated PT: Not required Prognosis: Guarded Disposition: Continue management in ortho floor. Follow up with CK and myoglobin in a.m. Felisa Parkinson MD Internal Medicine Resident PGY-2 Date of Service: Apr 10, 2025 Billing Provider: ADILSON SOFIA MD,FELISA HAIRSTON, RES Apr 10, 2025 17:52
[2025-04-10] MEDS: ringers solution, lacted 1,000 ML IV ONE ×2 (17:57→22:22)
[2025-04-10] MEDS: haloperidol lactate 5mg/ml inj IM PRN (18:29)
[2025-04-10] MEDS: HYDROmorphone inj. 0.5 MG/0.5 ML DISP.SYRIN IV PRN (22:43)
[2025-04-11] VITALS (8 sets, daily range): BP systolic 98–112; BP diastolic 60–81; PULSE 70–110; RESP 15–19; TEMP 97.6–98.2; O2SAT 95–100
[2025-04-11 05:53] LABS: MEAN PLATELET VOLUME 8.5 FL (7.4-10.4); RED CELL DISTRIBUTION WIDTH 20.6 % (11.5-14.5)
[2025-04-11 07:05] LABS: CREATININE 0.62 MG/DL (0.40-0.90); MYOGLOBIN 86.0 ng/ml (9-82); TOTAL CARBON DIOXIDE 25.8 MMOL/L (24-32); eCRCL 129 ML/MIN; eGFR > 90 ML/MIN
--- NOTE | 2025-04-11 08:28 | PROGRESS NOTE- Residence ---
Progress Note - Resident Providers to CC Resident Creating Document: FELIAS PARKINSON, RES ~ Antibiotic Timeout Antibiotic Ordered?: No Subjective The patient was seen and examined at bedside today. She required restraints last night as she was banging her head. This morning labs showed near normal myoglobin and downtrending CK. She will be consulted by Psychiatry today. Objective Vital Signs Date Time Temp Pulse Resp B/P (MAP) Pulse Ox O2 Delivery O2 Flow Rate FiO2 04/11/25 06:00 97.6 81 17 100/64 (76) 100 Room Air 04/10/25 12:55 3.0 Result Diagram: 04/11/25 0451 04/11/25 045 Adult female, alert and oriented, tearful Head: Normocephalic with an atraumatic Eyes: Pupils- 3mm, reacting to light, conjunctiva- anicteric Nose and throat: No polyps, septum- normal, no mucosal ulcers Neck: Supple, no lymphadenopathy, no carotid bruit Respiratory: No use of accessory muscles of respiration, Bilateral normal vesicular breath sounds heard. No wheeze, rhochi or creps Cardiac: S1-S2 heard, rhythm regular, no gallop/murmur Abdomen: non distended, no tenderness, no organomegaly, bowel sounds - heard Extremities: no clubbing, no pedal edema, no deformities, peripheral pulses - 2+ Skin: warm and dry, no rash, no purpura Neuro: No focal deficit, gross cranial nerve exam - normal Coagulation Studies Laboratory Tests Test 04/06/25 19:50 Prothrombin Time 10.6 SECONDS (9.0-12.0) INR International Normalized Ratio 1.0 INR Activated Partial Thromboplast Time 23 SECONDS (22-32) Coagulation Comments Assessment Assessment A 30-year-old female with past medical history of chronic pancreatitis and celiac disease was brought to the ED after alcohol intoxication and possible psychiatric medication overdose. She is being admitted into the hospital for further evaluation and management. Plan Plan Elevated creatinine kinase Possible exertional rhabdomyolysis, resolving Myoglobin has been near normalized, trended down from [id number]. CK has been trending down. Kidney function within normal limits. Continue ringer lactate at 150 mL/hour. Normocytic hypochromic anemia Likely combination of iron-deficiency and alcoholism Hemoglobin stable at 7.4. FOBT negative. EGD done today by Dr. Duvall. Showed erythematous mucosa in antrum. No active bleeding present. Started the patient on clear liquid diet and advance as tolerated. Protonix 40 mg b.i.d. IV. Iron studies show iron-deficiency anemia. Ferrlecit IV daily. Alcohol use disorder Initial alcohol level 457. 911 emergency services dispatcher and substance abuse navigator consulted. Moderate alcohol withdrawal protocol. Continue supplementation with IV folic acid and thiamine. Haldol and Ativan for agitation and restlessness. Suicidal ideation 1799 daily and sitter. She will be consulted by Psychiatry today. Possible psychiatric medication overdose (hydroxyzine, quetiapine, morphine) Cleared by poison control. Continued home medications. Patient is constantly seeking for pain medications - avoid excessive opiates. Code Status: Full code DVT Prophylaxis: SCDs Analgesia/Sedation: Morphine Lines/Tubes: PIV GI Prophylaxis: Protonix Nutrition: Clear liquid diet, advance as tolerated PT: Not required Prognosis: Guarded Disposition: Continue management in ortho floor. To be evaluated by [facility]. Felisa Parkinson MD Internal Medicine Resident PGY-2 Date of Service: Apr 11, 2025 Billing Provider: ADILSON SOFIA MD,FELISA HAIRSTON, RES Apr 11, 2025 08:28
--- NOTE | 2025-04-11 14:20 | PATHOLOGY REPORT ---
[facility] [address] [place] [address] SURGICAL PATHOLOGY REPORT CaseNumber: [id number] Surgeon:Tarah Bonilla M.D. CLINICAL INFORMATION CLINICAL INFORMATION: Melena. DIAGNOSIS DIAGNOSIS: GASTRIC ANTRUM, BIOPSIES X 2 - NO SIGNIFICANT INFLAMMATION, EDEMA, OR VASCULAR CONGESTION - NO INTESTINAL METAPLASIA BY PAS STAINING - NO DYSPLASIA OR MALIGNANCY - NO H. PYLORI ORGANISMS ARE HIGHLIGHTED BY IMMUNOHISTOCHEMISTRY MICROSCOPIC DESCRIPTION MICROSCOPIC DESCRIPTION: Reviewed is a single H&E-stained slide showing serial sections and levels of two fragments of gastric antral type mucosa. There is no significant inflammation, edema, or vascula r congestion. There is no intestinal metaplasia by PAS staining. There are no dysplastic or neoplasti c features. Also, no H. pylori organisms are highlighted by immunohistochemistry. GROSS DESCRIPTION GROSS DESCRIPTION: Received in a container of formalin labeled with the patients name, number, and "a ntrum BX" are 2 pieces of stringer tissue both 0.2 cm. The specimen is entirely submitted as A1. The time at which the specimen was removed was 755. The time at which the specimen was placed in formalin wa s 0756. Electronically signed by: Gabriel Deutsch M.D. 04/11/2025 1:46:00 PM
[2025-04-11] MEDS: pantoprazole 40mg Tablet.DR PO SCH (19:14)
--- NOTE | 2025-04-11 20:57 | PROGRESS NOTE ---
Progress Note Dictate Providers to CC ~ Antibiotic Ordered?: No Objective Vitals Vital Signs Date Time Temp Pulse Resp B/P (MAP) Pulse Ox O2 Delivery O2 Flow Rate FiO2 04/11/25 16:45 18 04/11/25 10:20 98.2 70 107/64 (78) 99 Room Air 04/10/25 12:55 3.0 Lab Results: 04/11/25 0451 04/11/25 0451 Coagulation Studies Laboratory Tests Test 04/06/25 19:50 Prothrombin Time 10.6 SECONDS (9.0-12.0) INR International Normalized Ratio 1.0 INR Activated Partial Thromboplast Time 23 SECONDS (22-32) Coagulation Comments Psychiatrist's Progress Note Date of Service: Apr 11, 2025 Notes HPI: Admitted on 04/09 For suspected medication overdose, found by her grandmother who called ems. there were empty bottles of hydroxyzine, morphine, quit typing present at bedside. she denied on a mission that she had taken the medications. did endorse that she had consumed alcohol (BAL 457), Utox positive for opiates, benzodiazepines, THC. Denied suicidal ideation/intent but then endorsed thoughts of self-harm when in the emergency department she was not provided her pain medication. was admitted to Medical floor for elevated creatine kinase. Past psychiatric History: States she has had mental health difficulties her whole life, states she has PTSD from her father commited suicide which occured a few years ago. Past inpatient hospitalizations: [facility] 04/02 Past mental health diagnosis: MDD, PTSD Suicide & Self harm history: OD on 04/09 Violence Hx/Legal Hx: denies Substance use history: alcohol use, marijuana Social Hx: Lives in [facility], was living with ex lilly States she is disabled due to her chronic pancreatitis, - 04/11 Assesment: Per nurse- she spends the whole day stating she is in severe pain, feels like nursing staff is torturing her, tried to leave AMA, then was crying hysterical, has been taking lorazepam which has been helping her sleep. She states that the hospital has been really bad to me, states she wants to go home, endorses severe depression. States she has things she is motivated to outpatient to improve her mental health, I do better when I am out than when I am in the hospital States she is working on improving her coping skills- reading, writing, drawing. States the night she was admitted she Drank some and her grandmother was worried that she had overdosed. Suicide/Self Harm Risk: high- on a 1798 hold Violence Risk: low Elopement Risk: High Fall risk: moderate r/t lorazepam/CIWA/pain medication - Medications: Duloxetine 40 mg Melatonin 9 mg PRNS: Hydroxyzine 50 mg prn anxiety Lorazepam 1 mg for anxiety/agitation/alcohol withdrawal Haloperidol 5 mg prn for agitation - Side Effects: Denies No evidence of TD, EPS AIMs: 0 - Review of Psychiatric Symptoms: Mood: high depression, significant sadness Suicide/self-harm: denies but then stated, If I dont have lilly I dont want to be alive (states they have been broken up since december) Sleep: poor, endorses nightmares r/t her relationship and me messing up Appetite: poor appetite, states she is eating something small Energy: poor, I would rather be asleep than awake so I dont have to think about all the thoughts Anxiety: high r/t worried that she wont be able to get repair her relationship with lilly. Irritability: pt denies but per nursing staff yes Homicidal/Anger: endorses anger towards nursing Hallucinations/Paranoia: denies Trauma symptoms: denies - Historical Psych Medications: bupropion (allergy), quetiapine, duloxetine, hydroxyzine, melatonin Mental Status Evaluation - General Appearance: hospital scrubs, malodorous Eye contact: consistent with social norms Demeanor: anxious, distressed Orientation: to person, place, time, situation Speech: Appropriate rate/rhythm/volume Psychomotor Activity: within normal range Abnormal Body Movements: none observed Mood: sad Affect: labile, tearful Suicidality: denies suicidal ideation Homicidally: denies Thought content: consistent with social norms Thought process: logical, linear Thought perceptions: no perceptual disorder noted Memory: impaired Attention: appear attentive Insight: fair Judgment: fair - Treatment Diagnoses MDD, recurrent, severe Overdose Alcohol use disorder (on CIWA Protocol) Hx of PTSD Assessment: Carrol is a 30 year old female who presents for consultation in the context of a recent overdose (polysubstance), Major depressive disorder and chronic pain. She reports today that she was recently discharged from an inpatient facility in [place] on 04/02. She denies that her recent overdose was done with suicidal intent. She has expressed significant anger and distress in the context of her current hospitalization, has had multiple conflicts with nursing staff, and is upset about being held as she wants to leave [place]. A cerrato focus of her passive thoughts of not wanting to be alive as well as her anxiety is her relationship with her ex boyfriend. She reports she has suffered from mental illness since childhood. Currently finds minimal benefit from her current psychiatric medications. Her presentation and history today is indicative of personality characteristics likely blunting capacity for symptom improvement. Would likely greatly benifit from parietal outpatient DBT/skills/sobriety programming, she states that being in the hospital can worsen her psychiatric symptoms. She does not present with concern for the behaviors which lead to hospitalization nor insight on a plan on how to mitigate safety concerns once discharged. Recommend continuing current medication regimen today as its unclear how her current presentation is influenced by alcohol withdrawal. Recommend care coordination with transit planner to ensure she can fully stabilize from a psychiatric perspective especially in the context of the severity of her OD and exterminator helper use of opioids for chronic pain. Safety risk: Moderate risk of imminent self-harm, Moderate risk of externalized violent behaviors. Plan Continue current medication regimen Care coordination with hospitalist Care coordination with social work/recreation program coordinator Discharge plan: not established, patient would like to attend a community program, wants to get out of the hospital. Spent approximately 90 minutes reviewing records and test results, assessing and treatment planning, completing care coordination and documenting the encounter. Discussed risks, including possible adverse effects, and benefits of treatment recommendations including no treatment. Voice recognition software may have been used to dictate this note. There may be errors due to use of such software. Reporting of serious errors is appreciated. CODING VISIT-PSYCHIATRY Date of Service: Apr 11, 2025 Billing Provider: IRVING MCGARRY DNP Psych Common Visit Codes: CONSULT ONLY IRVING MCGARRY DNP Apr 11, 2025 20:57
[2025-04-12 06:00] VITALS: BP 100/73; PULSE 54; RESP 18; TEMP 98.1; O2SAT 100
[2025-04-12 06:23] LABS: MEAN PLATELET VOLUME 8.3 FL (7.4-10.4); RED CELL DISTRIBUTION WIDTH 21.1 % (11.5-14.5)
[2025-04-12 06:30] LABS: CREATININE 0.60 MG/DL (0.40-0.90); MYOGLOBIN 35.0 ng/ml (9-82); TOTAL CARBON DIOXIDE 27.5 MMOL/L (24-32); eCRCL 133 ML/MIN; eGFR > 90 ML/MIN
[2025-04-12 10:00] VITALS: BP 96/62; PULSE 73; RESP 16; TEMP 98; O2SAT 97
--- NOTE | 2025-04-12 10:24 | PROGRESS NOTE- Residence ---
Progress Note - Resident Providers to CC Resident Creating Document: FELISA PARKINSON, RES ~ Antibiotic Timeout Antibiotic Ordered?: No Subjective The patient was seen and examined at bedside today. She is doing well, she has been medically cleared for evaluation by [facility]. Objective Vital Signs Date Time Temp Pulse Resp B/P (MAP) Pulse Ox O2 Delivery O2 Flow Rate FiO2 04/12/25 09:13 15 04/12/25 06:00 98.1 54 100/73 (82) 100 Room Air 04/10/25 12:55 3.0 Result Diagram: 04/12/2545604/12/25456 Adult female, alert and oriented, tearful Head: Normocephalic with an atraumatic Eyes: Pupils- 3mm, reacting to light, conjunctiva- anicteric Nose and throat: No polyps, septum- normal, no mucosal ulcers Neck: Supple, no lymphadenopathy, no carotid bruit Respiratory: No use of accessory muscles of respiration, Bilateral normal vesicular breath sounds heard. No wheeze, rhochi or creps Cardiac: S1-S2 heard, rhythm regular, no gallop/murmur Abdomen: non distended, no tenderness, no organomegaly, bowel sounds - heard Extremities: no clubbing, no pedal edema, no deformities, peripheral pulses - 2+ Skin: warm and dry, no rash, no purpura Neuro: No focal deficit, gross cranial nerve exam - normal Coagulation Studies Laboratory Tests Test 04/06/25 19:50 Prothrombin Time 10.6 SECONDS (9.0-12.0) INR International Normalized Ratio 1.0 INR Activated Partial Thromboplast Time 23 SECONDS (22-32) Coagulation Comments Assessment Assessment A 30-year-old female with past medical history of chronic pancreatitis and celiac disease was brought to the ED after alcohol intoxication and possible psychiatric medication overdose. She is being admitted into the hospital for further evaluation and management. Plan Plan Elevated creatinine kinase Possible exertional rhabdomyolysis, resolving CK has significantly trended down. Myoglobin has normalized. Kidney function within normal limits. Continue ringer lactate at 150 mL/hour. She has been medically cleared for evaluation by [facility]. Normocytic hypochromic anemia Likely combination of iron-deficiency and alcoholism Hemoglobin stable at 7.8. FOBT negative. EGD done by Dr. Duvall showed erythematous mucosa in antrum. No active bleeding present. Started the patient on clear liquid diet and advance as tolerated. Protonix 40 mg daily p.o. Iron studies show iron-deficiency anemia. Ferrlecit IV daily. We will transition to p.o. at discharge. Alcohol use disorder Initial alcohol level 457. financial services technician and substance abuse navigator consulted. Moderate alcohol withdrawal protocol. Continue supplementation with IV folic acid and thiamine. Haldol and Ativan for agitation and restlessness. Suicidal ideation 1799 daily and sitter. She has been medically cleared for evaluation by [facility]. Possible psychiatric medication overdose (hydroxyzine, quetiapine, morphine) Cleared by poison control. Continued home medications. Patient is constantly seeking for pain medications - avoid excessive opiates. Code Status: Full code DVT Prophylaxis: SCDs Analgesia/Sedation: Morphine Lines/Tubes: PIV GI Prophylaxis: Protonix Nutrition: Regular diet PT: Not required Prognosis: Guarded Disposition: Continue management in ortho floor. Medically cleared. To be evaluated by [facility]. Felisa Parkinson MD Internal Medicine Resident PGY-2 Date of Service: Apr 12, 2025 Billing Provider: ADILSON SOFIA MD,FELISA HAIRSTON, RES Apr 12, 2025 10:24
[2025-04-12] MEDS ORDERED: PANT40TA54 PO (15:23)
[2025-04-12] MEDS ORDERED: MULT-25 PO (15:23)
[2025-04-12] MEDS ORDERED: thiamine tablet PO (15:23)
[2025-04-12] MEDS ORDERED: FERR324T23 PO (15:23)
[2025-04-12] MEDS ORDERED: FOLI1TAB27 PO (15:23)
--- NOTE | 2025-04-12 18:35 | DISCHARGE SUMMARY-Residence ---
Discharge Summary Providers to Resident Creating Document: IGGYSHEILADickson HAIRSTON, RES ~ Discharge Summary Admission Diagnosis: Alcohol intoxication, UTI, elevated CK Hospital Course DATE OF ADMISSION: DATE OF DISCHARGE: Discharge Summary: Laboratory Tests Test 04/11/25 04:51 04/12/25 04:57 White Blood Count 4.7 X10'3 6.2 X10'3 Red Blood Count 2.79 X10'6 2.91 X10'6 Hemoglobin 7.4 g/dl 7.8 g/dl Hematocrit 23.6 % 24.7 % Mean Corpuscular Volume 84.5 FL 84.8 FL Mean Corpuscular Hemoglobin 26.6 PG 26.9 PG Mean Corpuscular Hemoglobin Concent 31.5 g/dL 31.7 g/dL Red Cell Distribution Width 20.6 % 21.1 % Platelet Count 221 X10'3 244 X10'3 Mean Platelet Volume 8.5 FL 8.3 FL Neutrophils (%) (Auto) 38.9 % 57.4 % Lymphocytes (%) (Auto) 49.6 % 36.0 % Monocytes (%) (Auto) 5.9 % 4.1 % Eosinophils (%) (Auto) 4.5 % 2.1 % Basophils (%) (Auto) 1.1 % 0.4 % Neutrophils # (Auto) 1.8 X10'3 3.5 X10'3 Lymphocytes # (Auto) 2.3 X10'3 2.2 X10'3 Monocytes # (Auto) 0.3 X10'3 0.3 X10'3 Eosinophils # (Auto) 0.2 X10'3 0.1 X10'3 Basophils # (Auto) 0.1 X10'3 0.0 X10'3 CBC Comment Sodium Level 140 MMOL/L 139 MMOL/L Potassium Level 3.6 MMOL/L 3.5 MMOL/L Chloride Level 108 MMOL/L 106 MMOL/L Carbon Dioxide Level 25.8 MMOL/L 27.5 MMOL/L Anion Gap 6 6 Blood Urea Nitrogen 2 MG/DL 2 MG/DL Creatinine 0.62 MG/DL 0.60 MG/DL Estimated GFR/1.73 m2 > 90 ML/MIN > 90 ML/MIN BUN/Creatinine Ratio 3.2 3.3 Glucose Level 105 MG/DL 95 MG/DL Calcium Level 8.3 MG/DL 8.4 MG/DL Magnesium Level 1.6 MG/DL 1.7 MG/DL Total Bilirubin 0.3 MG/DL 0.2 MG/DL Aspartate Amino Transf (AST/SGOT) 45 U/L 31 U/L Alanine Aminotransferase (ALT/SGPT) 37 U/L 35 U/L Alkaline Phosphatase 97 IU/L 109 IU/L Total Creatine Kinase 1477 U/L 665 U/L Myoglobin 86.0 ng/ml 35.0 ng/ml Total Protein 5.2 G/DL 5.8 G/DL Albumin 2.5 G/DL 2.8 G/DL Globulin 2.7 G/DL 3.0 G/DL Albumin/Globulin Ratio 0.9 0.9 Chemistry Comments Date of Service: Apr 12, 2025 Billing Provider: ADILSON SOFIA MD, SOWMYA MANJARI, RES Apr 12, 2025 18:35
[2025-04-13] MEDS ORDERED: pantoprazole 40mg Tablet.DR PO SCH (08:00)
== END 2025-04-12 15:45 | disposition home or self-care (01) | DRG 817 ==
LOC: ER 19:17 → ED HOLD 04-09 10:45 → EDBEDREQ 04-09 12:40 → ORTHO 4S 04-09 14:15
PROVIDERS: ADMIT Family Medicine; ATTEND Family Medicine
PROC: 05H933Z Insertion of Infusion Device into Right Brachial Vein, Percutaneous Approach (ICD-10-PCS; 2025-04-10)
PROC: B54MZZA Ultrasonography of Right Upper Extremity Veins, Guidance (ICD-10-PCS; 2025-04-10)
PROC: 0DB78ZX Excision of Stomach, Pylorus, Via Natural or Artificial Opening Endoscopic, Diagnostic (ICD-10-PCS; principal; 2025-04-10 07:31)
DX: T43.592A Poisoning by other antipsychotics and neuroleptics, intentional self-harm, initial encounter (principal); M62.82 Rhabdomyolysis; R45.851 Suicidal ideations; F33.2 Major depressive disorder, recurrent severe without psychotic features; D50.8 Other iron deficiency anemias; F10.229 Alcohol dependence with intoxication, unspecified; K92.1 Melena; Z20.822 Contact with and (suspected) exposure to COVID-19; K31.89 Other diseases of stomach and duodenum; T40.2X2A Poisoning by other opioids, intentional self-harm, initial encounter; F10.239 Alcohol dependence with withdrawal, unspecified; F43.10 Post-traumatic stress disorder, unspecified; Y92.89 Other specified places as the place of occurrence of the external cause
CPT/HCPCS: 36410; 36415; 43239; 71045; 76937; 80048; 80053; 80076; 80305; 80320; 80329; 81001; 81025; 82140; 82272; 82550; 82607; 82728; 82948; 83540; 83550; 83605; 83615; 83690; 83735; 83874; 84439; 84443; 84466; 84484; 85007; 85008; 85025; 85610; 85651; 85730; 86885; 86900; 86901; 87077; 87081; 87088; 87186; 87811; 93005; 99285; C1751; G0378; J0696; J1171; J1200; J1630; J2003; J2060; J2250; J2270; J2405; J2470; J2704; J2916; J3010; J3411; J3490; J7030; J7120

== ENCOUNTER 2025-04-18 19:44 | Emergency (ER) | payer MEDICAID ==
[~2025-04-18 19:44] MED LIST changes: +DULO20CA50 PO; -DULO60CA65 PO; +FERR324T23 PO; +FOLI1TAB27 PO; +HYDR-3686 PO; -LACT1CAP26 PO; +MELA5TAB66 PO; +MORP100S7 PO; +MULT-25 PO; +PANT40TA54 PO; +QUET100T34 PO; +thiamine tablet PO
--- NOTE | 2025-04-18 21:12 | Physician Documentation ---
History of Present Illness Chief Complaint: See Chief Complaint Stated Complaint: GEN ILLNESS Time Seen by MD: 20:50 Primary Medical Doctor: PRABHA Mode of Arrival: EMS HPI This is a 30-year-old female who has had multiple ED visits for similar symptoms presenting with acute onset abdominal pain. Patient reports that she has a history of chronic pancreatitis and that her pancreas is once again flaring up. Reports the pain started about two days ago and has been gradually worsening. She woke up at about 4:25 a.m. this morning vomiting and in severe pain. Pain is in the epigastric area and radiates to her back. Reports that she does not know why she has pancreatitis. She previously was a heavy alcohol drinker but has not drank any alcohol in a couple of weeks. Reports that she has been worked up at [facility] for this as well and they can not find a cause for her pancre atitis. She states that she went to [facility] earlier today but that they would not see her. As per review of the record the patient has multiple visits in our ED as well. She was recently discharged from our hospital about a week ago. Patient also has had visits for psych issues and uncooperative behavior. She recently was also suicidal and was put on a 5150 hold and evaluated and eventually released. Last Menstrual Period: Apr 03, 2025 Medication Reconciliation Allergies: Coded Allergies: bupropion (Verified Allergy, Intermediate, BAD THOUGHTS AND RASH, 03/20/25) furosemide (Verified Allergy, Unknown, 03/20/25) gluten (Unverified Allergy, Unknown, 03/20/25) ketorolac (Verified Allergy, Unknown, 03/20/25) Uncoded Allergies: WELBUTRIN (Allergy, Unknown, 03/20/25) Scheduled Duloxetine Hcl* (Cymbalta*), 40 MG PO DAILY, (Reported) Ferrous Gluconate (Ferrous Gluconate), 1 TAB PO DAILY Folic Acid* (Folic Acid*), 1 MG PO DAILY Melatonin (Melatonin), 2 TAB PO HS, (Reported) Multivitamin with Folic Acid (Thera Tablet), 1 EACH PO Q24H Pantoprazole Sodium (Pantoprazole Sodium), 40 MG PO DAILY Quetiapine Fumarate (Quetiapine Fumarate), 1 TAB PO HS, (Reported) [thiamine tablet], 100 MG PO DAILY Scheduled PRN Hydroxyzine Hcl (Atarax), 50 MG PO TID PRN for for anxiety/agitation, (Reported) Morphine Sulfate (Morphine Sulfate), 20 MG PO Q8H PRN for pain, (Reported) Past Medical History Last Menstrual Period: Apr 03, 2025 Patient History: Patient reports no known family medical history. Review of Systems All Other Systems at this time: Reviewed and Negative Physical Exam Vital Signs: Temperature: 98.2, Source: Temporal, Heart Rate: 69, Respiratory Rate: 18, BP: 117/88, Pulse Oximetry: 100 Oxygen Flow Rate: 0 Physical Exam I have reviewed the triage vitals. CONST: Well developed and well nourished. In no acute distress HENT: Head Atraumatic EYES: Pupils are equal, round and reactive to light. Normal conjunctiva NECK: Normal range of motion. Supple. CARDIO: Normal rate and regular rhythm. No murmurs, rubs, or gallops. S1, S2. PULM/CHEST: No respiratory distress. Lungs clear to auscultation. No wheeze ABD: Soft, tenderness to palpation over the epigastrium.. Nondistended. Bowel sounds normal. No guarding. : Exam deferred MSK: No edema. No deformity. NEURO: Alert and oriented to person, place and time. Moving all extremities SKIN: Warm and dry. PSYCH: Normal mood and affect. Good eye contact. Progress Results/Orders Results/Orders Orders - DK DAILEY MD Amylase (04/18/25 21:05) Cbc/Diff (04/18/25 21:05) Lipase (04/18/25 21:05) Urinalysis, Cult If Indicated (04/18/25 21:05) CMP (04/18/25 21:05) Vital Signs 04/18/25 04/18/25 04/18/25 19:50 20:37 20:45 Temp 98.2 Pulse 101 69 Resp 16 18 18 B/P (MAP) 113/76 117/88 (98) Pulse Ox 96 100 O2 Flow Rate 0 Medical Decision Making Additional Comments This is a 30-year-old female who is very well known to this emergency department and has had multiple visits for similar symptoms. She states that she has chronic pancreatitis and that no one will take her seriously or treat her pain. She has been admitted and discharged from our hospital recently on a 5150 hold. She has a history of agitation and uncooperative behavior. I did do a lab workup on the patient which is grossly unremarkable aside from a borderline low potassium level. I do not believe that the patient is having a flare-up of her pancreatitis as when left alone the patient did not appear to be any pain. The exam that I performed on her was benign as well. Patient would repeatedly act up stating that she wants narcotic pain medication. She is on morphine given to her by her pain management physician. I did offer to treat her nausea with some IV Zofran and IV fluids however the patient declined this. She kept repeatedly asking for narcotic pain medication. We explained to her that this is not the proper treatment for her and that she needs to get treated for her mental health issues. The patient has reportedly been told this numerous times in the past and has failed to follow up. The patient became extremely agitated and started hitting herself against the bed rails. She required temporary restraint by security and soft restraints. We had multiple conversations with the patient stating that this behavior is detrimental to her own health. I once again emphasized the importance of her following up as an outpatient with mental health. Patient continued to be very agitated and uncooperative and eventually had to be escorted out of the emergency department by security. Departure Disposition: HOME / SELF CARE / HOMELESS Impression: Primary Impression: Psychosocial impairment Additional Impressions: Agitation Uncooperative behavior Referrals: NO PRIMARY CARE PROVIDER (PCP) DK DAILEY MD Apr 18, 2025 21:11
[2025-04-18 21:21] LABS: MEAN PLATELET VOLUME 7.8 FL (7.4-10.4); RED CELL DISTRIBUTION WIDTH 24.1 % (11.5-14.5)
[2025-04-18 21:33] LABS: CREATININE 0.70 MG/DL (0.40-0.90); TOTAL CARBON DIOXIDE 24.8 MMOL/L (24-32); eGFR > 90 ML/MIN
[2025-04-18] MEDS ORDERED: ondansetron/PF 4mg/2ml inj IV ONE (22:05)
[2025-04-18] MEDS ORDERED: normal saline 1000ml 1,000 ML IV ONE (22:05)
[2025-04-18 23:52] VITALS: BP 136/58; PULSE 80; RESP 18; TEMP 98.2; O2SAT 100
== END 2025-04-18 23:55 | disposition home or self-care (01) ==
LOC: ER 19:45
DX: Z65.8 Other specified problems related to psychosocial circumstances (principal); R45.1 Restlessness and agitation; R10.13 Epigastric pain; R11.10 Vomiting, unspecified; Z88.8 Allergy status to other drugs, medicaments and biological substances
CPT/HCPCS: 80053; 82150; 83690; 85025; 99285; J7030

== ENCOUNTER 2025-07-05 21:20 | Emergency (ER) | payer MEDICAID ==
[~2025-07-05] VITALS: Ht 154.9 cm; Wt 64.0 kg
--- NOTE | 2025-07-05 21:54 | Physician Documentation ---
History of Present Illness ~ Chief Complaint: Abdominal Pain Stated Complaint: SOB Time Seen by MD: 21:38 Primary Medical Doctor: PRABHA HPI Patient presents to the emergency room with chief complaint of chronic abdominal pain that she believes that has related to chronic pancreatitis. She does have pain contract. She has been seen here multiple times in the past with workup a ll negative. Today patient called 911 stating she needed medical attention but we would not say more. [employer] arrived on scene and she would not talk with them therefore EMS was called to the scene and she would not talk to them. EN route patient did not when she describes some abdominal pain. She has history of explosive behavior became combative in the ambulance and in the emergency room requiring restraints. She has since calmed down. Continues to complain of abdominal pain that has stating she just wants it to go away Medication Reconciliation Allergies: Coded Allergies: bupropion (Verified Allergy, Intermediate, BAD THOUGHTS AND RASH, 03/20/25) furosemide (Verified Allergy, Unknown, 03/20/25) gluten (Unverified Allergy, Unknown, 03/20/25) ketorolac (Verified Allergy, Unknown, 03/20/25) Uncoded Allergies: WELBUTRIN (Allergy, Unknown, 03/20/25) Scheduled Duloxetine Hcl* (Cymbalta*), 40 MG PO DAILY, (Reported) Ferrous Gluconate (Ferrous Gluconate), 1 TAB PO DAILY Folic Acid* (Folic Acid*), 1 MG PO DAILY Melatonin (Melatonin), 2 TAB PO HS, (Reported) Multivitamin with Folic Acid (Thera Tablet), 1 EACH PO Q24H Pantoprazole Sodium (Pantoprazole Sodium), 40 MG PO DAILY Quetiapine Fumarate (Quetiapine Fumarate), 1 TAB PO HS, (Reported) [thiamine tablet], 100 MG PO DAILY Scheduled PRN Hydroxyzine Hcl (Atarax), 50 MG PO TID PRN for for anxiety/agitation, (Reported) Morphine Sulfate (Morphine Sulfate), 20 MG PO Q8H PRN for pain, (Reported) Past Medical History Patient History: Patient reports no known family medical history. Review of Systems ROS All review of systems negative except as per HPI Physical Exam Vital Signs: Source: Oral, Heart Rate: 80, Respiratory Rate: 20, BP: 118/79, Pulse Oximetry: 98, Weight: 64.000 Physical Exam General: Patient is awake, alert, uncooperative Head: Normocephalic and atraumatic. Eyes: Conjunctival normal. EOMI. PERRL. ENT: Mucous membranes moist. Neck: Supple, trachea is midline. Chest: Clear to auscultation bilaterally without rales, rhonchi, or wheezes. There is no accessory muscle use or retractions. Cardiac: RRR without murmurs, gallops, or rubs. Abd: Soft, nondistended, diffuse abdominal tenderness without peritonitis Extremities: In four point restraints Progress Results/Orders Results/Orders Orders - GERMAIN STANTON MD Behavioral Restraints (07/05/25 ) Saline Lock (07/05/25 21:46) Nothing By Mouth (07/06/25 Dinner) Med Rec (07/05/25 22:38) 1799.11 (07/05/25 22:38) Close Observation Level (07/05/25 22:38) Covid19 Binax Poc Result Entry (07/05/25 22:38) Substance Use Navigator (07/05/25 22:38) Regular Diet (07/06/25 Breakfast) Potassium Cl 40meq/1/2ns 520ml ([place] (07/06/25 00:00) K (07/06/25 06:00) Completed Orders - GERMAIN STANTON MD Cbc/Diff (07/05/25 21:46) Lipase (07/05/25 21:46) Hcg, Ur Ql (07/05/25 21:46) Hs Troponin I W Calculations (07/05/25 21:46) Hs Troponin I W Calculations (07/05/25 23:46) CMP (07/05/25 21:46) Ethanol (07/05/25 21:46) Drug Screen, Urine (07/05/25 21:46) Diphenhydramine Inj (Benadryl Inj.) (07/05/25 22:05) Acetaminophen 325mg Tablet (Tylenol Tabl (07/05/25 22:05) TSH (07/05/25 22:38) BMP (07/05/25 22:38) Procalcitonin (07/05/25 22:38) Haloperidol Lact. (Haldol) (07/05/25 22:40) Midazolam 5 Mg/Ml 2ml Inj (Versed 5 Mg/M (07/05/25 22:40) Ondansetron Inj. (Zofran 4mg/2ml Vial) (07/05/25 22:45) Famotidine/Pf Iv Inj (Pepcid Iv Inj) (07/05/25 22:45) Normal Saline 1000ml (0.9% Sodium Chlori (07/05/25 22:45) Potassium Cl 40meq/1/2ns 520ml ([place] (07/06/25 00:00) Ondansetron Disint. Tablet (Zofran Odt T (07/06/25 02:20) Ua W/Microscopic, Cult If Ind (07/06/25 01:53) Haloperidol Lact. (Haldol) (07/06/25 02:55) Diphenhydramine Inj (Benadryl Inj.) (07/06/25 02:55) Medications Received in ER Medications (Trade) Dose Ordered Sig/Mahnaz Route PRN Reason Start Time Stop Time Status Last Admin Dose Admin (Benadryl inj.) 50 mg ONCE ONCE IM 07/05/25 22:05 07/05/25 22:06 DC 07/05/25 22:27 50 MG (Tylenol tablet) 650 mg ONCE ONCE PO 07/05/25 22:05 07/05/25 22:06 DC 07/05/25 22:30 650 MG (Haldol) 5 mg ONCE ONCE IM 07/05/25 22:40 07/05/25 22:43 DC 07/05/25 23:08 5 MG (Versed 5 MG/ML 2ML inj) 5 mg ONCE ONCE IM 07/05/25 22:40 07/05/25 22:41 DC 07/05/25 23:08 5 MG (Zofran 4mg/2ml vial) 4 mg ONCE ONCE IV 07/05/25 22:45 07/05/25 22:46 DC 07/05/25 23:08 4 MG (Pepcid IV inj) 20 mg ONCE ONCE IV 07/05/25 22:45 07/05/25 22:46 DC 07/05/25 23:09 20 MG (0.9% sodium chloride (NS) 1000ml IV soln) 2,000 ml ONCE ONCE IVB 07/05/25 22:45 07/05/25 22:46 DC 07/05/25 22:45 2,000 ML Potassium Chloride 520 ml @ 130 mls/hr Q4H IV 07/06/25 00:00 07/06/25 07:59 07/06/25 00:06 130 MLS/HR (Zofran ODT tablet) 4 mg ONCE ONCE PO 07/06/25 02:20 07/06/25 02:22 DC 07/06/25 02:23 4 MG (Haldol) 5 mg ONCE ONCE IM 07/06/25 02:55 07/06/25 02:57 DC 07/06/25 03:02 5 MG (Benadryl inj.) 50 mg ONCE ONCE IM 07/06/25 02:55 07/06/25 02:57 DC 07/06/25 03:02 50 MG Vital Signs 07/05/25 07/05/25 21:45 21:46 Pulse 80 Resp 20 18 B/P (MAP) 118/79 (92) Pulse Ox 98 Laboratory Tests Test 07/05/25 21:58 07/05/25 23:56 07/06/25 00:39 07/06/25 01:53 White Blood Count 13.0 H Red Blood Count 4.43 Hemoglobin 12.2 Hematocrit 37.7 Mean Corpuscular Volume 85.1 Mean Corpuscular Hemoglobin 27.6 Mean Corpuscular Hemoglobin Concent 32.4 L Red Cell Distribution Width 19.4 H Platelet Count 265 Mean Platelet Volume 8.3 Neutrophils (%) (Auto) 89.6 H Lymphocytes (%) (Auto) 6.5 L Monocytes (%) (Auto) 3.7 Eosinophils (%) (Auto) 0 Basophils (%) (Auto) 0.2 Neutrophils # (Auto) 11.6 H Lymphocytes # (Auto) 0.8 L Monocytes # (Auto) 0.5 Eosinophils # (Auto) 0.0 Basophils # (Auto) 0.0 CBC Comment Sodium Level 145 141 Potassium Level 3.0 *L 3.3 L Chloride Level 104 103 Carbon Dioxide Level 17.0 L 19.9 L Anion Gap 24 H 18 H Blood Urea Nitrogen 12 12 Creatinine 0.86 0.69 Estimated GFR/1.73 m2 77 > 90 BUN/Creatinine Ratio 14.0 17.4 Glucose Level 135 H 166 H Calcium Level 8.5 8.7 Total Bilirubin 0.3 Aspartate Amino Transf (AST/SGOT) 25 Alanine Aminotransferase (ALT/SGPT) 51 Alkaline Phosphatase 125 H Troponin I High Sensitivity 4 6 Total Protein 8.0 Albumin 3.7 3.7 Globulin 4.3 Albumin/Globulin Ratio 0.9 L Lipase 31 Procalcitonin < 0.05 Chemistry Comments Ethyl Alcohol Level 81 H Troponin I High Sens Percent Delta 50 Troponin I Hi Sens Absolute Change 2 Thyroid Stimulating Hormone (TSH) < 0.01 L SARS-CoV-2 Antigen (Rapid) Negative Urine Specimen Description Non-specified Urine Color Yellow Urine Clarity Clear Urine pH 6.0 Urine Specific Hanna 1.025 Urine Protein Negative Urine Glucose (UA) Negative Urine Ketones >=80 Urine Occult Blood Large H Urine Nitrite Negative Urine Bilirubin Negative Urine Urobilinogen 0.2 Urine Leukocyte Esterase Negative Urine RBC 3-10 Urine WBC 0-4 Urine Squamous Epithelial Cells Moderate Urine Bacteria Few Urine Culture Indicated Not ind Volume Urine Centrifuged 10 ml Urine HCG, Qualitative Negative Urine Comment Urine Opiates Screen Negative Urine Methadone Screen Negative Urine Fentanyl Screen Negative Urine Barbiturates Screen Negative Urine Phencyclidine Screen Negative Urine Amphetamines Screen Negative Urine Benzodiazepines Screen Positive Urine Cocaine Screen Negative Urine Cannabinoids Screen Positive Drug Screen Comment Medical Decision Making Additional information obtaine: old records Findings Patient presents to the emergency room with abdominal pain combative behavior as per HPI. She has presented this way multiple times that has usually related to alcohol. She has been combative to enough to the requires restraints and at this juncture that has affecting the care of other patients. Patient to be discharged. Upon discharge patient endorses suicidal ideation with thoughts to walk out in traffic. Patient placed on a 1799, B 52 necessary. She continues to ask for opioids. Labs reviewed and there was no evidence of major pathologic derangements. I do not feel patient requires a CT scan. Patient is medically cleared for mental health evaluation Diff Dx GI Bleed:Consideration: Include: Bleeding diathesis Diff Dx Pain:Considerations: Include: -Threatened Diff Dx N/V/D:Considerations: Include: Diarrhea - parasitic Diff Dx Rectal:Considerations: Include: Foreign body Departure Disposition: 30 STILL A PATIENT Impression: Primary Impression: Suicidal ideation Additional Impression: Chronic abdominal pain Condition: Guarded Referrals: NO PRIMARY CARE PROVIDER (PCP) Signature Scribe Signature: No scribe Attestation: The note accurately reflects work and decisions made by me.Germain Stanton MD 07/05/25 22:18 GERMAIN STANTON MD Jul 05, 2025 21:54
[2025-07-05 22:23] LABS: MEAN PLATELET VOLUME 8.3 FL (7.4-10.4); RED CELL DISTRIBUTION WIDTH 19.4 % (11.5-14.5)
[2025-07-05 22:25] LABS: CREATININE 0.86 MG/DL (0.40-0.90); ETHANOL 81 MG/DL (<10); TOTAL CARBON DIOXIDE 17.0 MMOL/L (24-32); eCRCL 72 ML/MIN; eGFR 77 ML/MIN
[2025-07-05] MEDS: normal saline 1000ML IV soln IVB ONE (22:45)
[2025-07-05] MEDS: MIDAZolam 5mg/ml 2ml vial IM ONE (23:08)
[2025-07-05] MEDS: haloperidol lactate 5mg/ml inj IM ONE (23:08)
[2025-07-05] MEDS: ondansetron/PF 4mg/2ml inj IV ONE (23:08)
[2025-07-05] MEDS: famotidine/PF 10 mg/ml inj IV ONE (23:09)
[2025-07-06] MEDS: potassium Cl 40MEQ/1/2NS 520ml 520 ML IV ONE
[2025-07-06] MEDS: potassium Cl 40MEQ/1/2NS 520ml 520 ML IV SCH (00:06)
[2025-07-06 00:26] LABS: CREATININE 0.69 MG/DL (0.40-0.90); TOTAL CARBON DIOXIDE 19.9 MMOL/L (24-32); eCRCL 90 ML/MIN; eGFR > 90 ML/MIN
[2025-07-06 02:10] LABS: URINE HCG NEGATIVE (NEG)
[2025-07-06 02:12] LABS: LEUKOCYTE ESTERASE ,URINE NEGATIVE (Neg); NITRITES, URINE NEGATIVE (Neg); OCCULT BLOOD,URINE LARGE (Neg)
[2025-07-06] MEDS: ondansetron 4mg rapidly disintigrating tab PO ONE (02:23)
[2025-07-06 02:24] LABS: URINE AMPHETAMINE SCREEN NEGATIVE (Neg); URINE BARBITUATE SCREEN NEGATIVE (Neg); URINE BENZODIAZEPINES SCREEN POSITIVE (Neg); URINE CANNABINOID SCREEN POSITIVE (Neg); URINE COCAINE SCREEN NEGATIVE (Neg); URINE METHADONE SCREEN NEGATIVE (Neg); URINE OPIATE SCREEN NEGATIVE (Neg); URINE PHENCYCLIDINE SCREEN NEGATIVE (Neg)
[2025-07-06 02:34] LABS: UA COLLECTION TYPE NON-SPECIFIED
[2025-07-06 02:40] LABS: SQUAMOUS EPITHELIAL CELL,UR MODERATE /LPF (FEW)
[2025-07-06] MEDS: haloperidol lactate 5mg/ml inj IM ONE ×3 (03:02→17:30)
[2025-07-06] MEDS: ondansetron/PF 4mg/2ml inj IV ONE (07:42)
[2025-07-06] MEDS: potassium Cl 20 mEq SR tablet PO STA (10:31)
[2025-07-06] MEDS: metoclopramide 5 mg/ml inj IV ONE (16:30)
[2025-07-07 01:12] LABS: MEAN PLATELET VOLUME 7.9 FL (7.4-10.4); RED CELL DISTRIBUTION WIDTH 18.2 % (11.5-14.5)
[2025-07-07] MEDS: ondansetron/PF 4mg/2ml inj IV ONE (01:17)
[2025-07-07 01:28] LABS: CREATININE 0.76 MG/DL (0.40-0.90); TOTAL CARBON DIOXIDE 27.9 MMOL/L (24-32); eCRCL 82 ML/MIN; eGFR 89 ML/MIN
--- NOTE | 2025-07-07 02:09 | RADIOLOGY REPORT ---
EXAM: CT CT HEAD INDICATION: New onset seizure TECHNIQUE: CT of the head without intravenous contrast. Radiation Dose : 1. Head: CT Dose: CTDI volume is 56.52 mGy. Dose-length product is 1038.27 mGy*cm The dose indicators for CT are the volume Computed Tomography (CT) Dose Index (CTDIvol) and the Dose Length Product (DLP), and are measured in units of mGy and mGy-cm, respectively. These indicators are not patient dose, but values generated from the CT scanner acquisition factors. The report includes radiation exposure data for exposures received during this examination. COMPARISON: CT CTA NECK/HEAD on DOS: 07/07/25, CT CT HEAD on DOS: 09/27/23 FINDINGS: There is no evidence of acute intracranial hemorrhage, extra-axial collection, mass effect, midline shift, herniation or hydrocephalus. The ventricles, sulci and cisterns are age appropriate. The hooper-white differentiation is intact. The visualized paranasal sinuses and mastoid air cells are clear. The surrounding soft tissues and osseous structures are unremarkable. IMPRESSION: 1. No evidence of acute intracranial abnormality. Radiation optimization: All CT scans at this facility use at least one of these dose optimization techniques: automated exposure control mA and/or kV adjustment per patient size (includes targeted exams where dose is matched to clinical indication) or iterative reconstruction.
--- NOTE | 2025-07-07 02:49 | RADIOLOGY REPORT ---
INDICATION: New onset seizure, strangle herself with a cord from EKG leads COMPARISON: CT CT HEAD on DOS: 07/07/25, CT CT HEAD on DOS: 09/27/23 TECHNIQUE: CTA head without and with intravenous contrast. CTA neck with intravenous contrast. 3D image postprocessing was performed on a dedicated workstation and images were used for interpretation and reporting. Radiation Dose Information: CT Dose: CTDI volume is 34.0 mGy. Dose-length product is 541.32 mGy*cm FINDINGS: CT head: There is no evidence of acute intracranial hemorrhage, extra-axial collection, mass effect, midline shift, herniation or hydrocephalus. The ventricles, sulci and cisterns are age appropriate. The hooper-white differentiation is intact. The visualized paranasal sinuses and mastoid air cells are clear. The surrounding soft tissues and osseous structures are unremarkable. CTA head: There is normal enhancement of the visualized distal internal carotid, anterior and middle cerebral arteries. There is a normal anterior communicating artery complex. There are bilateral posterior communicating arteries. The vertebral, basilar, cerebellar and posterior cerebral arteries are within normal limits. The early parenchymal enhancement is grossly unremarkable. The visualized intracranial venous structures are grossly unremarkable. CTA neck: The visualized thoracic aortic arch and proximal great vessels are unremarkable. The left common, internal and external carotid arteries are within normal limits. The right common, internal and external carotid arteries are within normal limits. The cervical segments of the right and left vertebral arteries are within normal limits. The limited visualized lung apices are clear. The surrounding soft tissues and osseous structures are otherwise unremarkable. IMPRESSION: 1. No evidence of acute intracranial hemorrhage, mass effect or hydrocephalus. 2. No evidence of hemodynamically significant intracranial stenosis, proximal occlusion or aneurysm. 3. No evidence of hemodynamically significant cervical stenosis or dissection. All CT scans at this medical facility are performed using dose modulation techniques as appropriate to a performed exam including the following: Automated exposure control was utilized; adjustment of the MA and/or KV according to patient size; and use of iterative reconstruction technique.
[2025-07-07] MEDS ORDERED: POTASSIUM BICARB 20meq eff tab 20 MEQ TABLET.EFF PO SCH (03:00)
[2025-07-07] MEDS ORDERED: FERR324T23 PO (03:46)
[2025-07-07] MEDS ORDERED: FOLI1TAB27 PO (03:47)
[2025-07-07] MEDS ORDERED: THIA100T70 PO (03:51)
[2025-07-07] MEDS ORDERED: PANT-47 PO (03:52)
[2025-07-07] MEDS: pantoprazole 40mg Tablet.DR PO SCH (07:41)
[2025-07-07] MEDS: duloxetine 20mg capsule.DR PO SCH (07:41)
[2025-07-07] MEDS: potassium Cl 20 mEq SR tablet PO STA (07:42)
[2025-07-07] MEDS: haloperidol lactate 5mg/ml inj IM ONE (11:29)
[2025-07-07] MEDS: hyDROXYzine 50 mg/ml injection ***IM only IM ONE (14:56)
[2025-07-08 06:02] LABS: CREATININE 0.67 MG/DL (0.40-0.90); TOTAL CARBON DIOXIDE 28.7 MMOL/L (24-32); eCRCL 93 ML/MIN; eGFR > 90 ML/MIN
[2025-07-08] MEDS ORDERED: diphenoxylate/atropine 2.5mg/0.025mg per 5ml oral solution PO PRN (06:20)
[2025-07-08] MEDS: potassium Cl 20 mEq SR tablet PO STA ×2 (06:32→12:07)
--- NOTE | 2025-07-08 07:03 | ELECTROCARDIOGRAPH REPORT ---
[facility] Test Date: 2025-07-08 Test Time: 06:59:59 Pat Name: ALBERTO BARRETO Department: [facility] Patient ID: [id number] Room: Gender: F [employer]: : 1995 Requested By: CHINO GAMING Order Number: [id number] Reading MD: Dr. Chino Gaming Measurements Intervals [place] Rate: 64 P: 126 HI: 71 QRS: 78 QRSD: 101 T: 63 QT: 532 QTc: 549 Interpretive Statements Sinus rhythm Short HI interval Minimal ST depression, diffuse leads Prolonged QT interval Electronically Signed On 07-08-2025 9:42:[address] Chino Gaming Please click the below link to view image of tracing.
[2025-07-08] MEDS: LOPERAMIDE 2 mg/15 ml oral solution UD PO PRN (10:29)
[2025-07-08] MEDS ORDERED: loperamide 2mg capsule PO ONE (12:05)
[2025-07-08] MEDS ORDERED: LOPERAMIDE 2 mg/15 ml oral solution UD PO PRN (12:15)
[2025-07-08] MEDS: D5-1/2NS w/20 mEq potassium per 1000ml IV ONE (14:04)
[2025-07-08 20:14] VITALS: BP 114/74; PULSE 74; RESP 18; TEMP 98.6; O2SAT 99
== END 2025-07-08 20:17 | disposition home or self-care (01) ==
LOC: ER 21:21
DX: R45.851 Suicidal ideations (principal); R10.9 Unspecified abdominal pain; F11.10 Opioid abuse, uncomplicated; F44.5 Conversion disorder with seizures or convulsions; G89.29 Other chronic pain; E87.6 Hypokalemia; Z88.8 Allergy status to other drugs, medicaments and biological substances; Z20.822 Contact with and (suspected) exposure to COVID-19
CPT/HCPCS: 36415; 80048; 80053; 80305; 80320; 81001; 81025; 83605; 83690; 83735; 84132; 84145; 84443; 84484; 85025; 87811; 93005; 96361; 96372; 96374; 96375; 96376; 99285; J1171; J1200; J1630; J2250; J2405; J2765; J3480; J3490; J7030

== ENCOUNTER 2025-08-01 13:16 | Emergency (ER) | payer MEDICAID ==
[~2025-08-01 13:16] MED LIST changes: -HYDR-3686 PO; -MULT-25 PO; +PANT-47 PO; -PANT40TA54 PO; +THIA100T70 PO; -thiamine tablet PO
--- NOTE | 2025-08-01 13:41 | Physician Documentation ---
History of Present Illness General Stated Complaint: ABD PAIN Time Seen by MD: 13:32 Primary Medical Doctor: [facility] History of Present Illness Initial Comments History, review of systems, physical examination are limited due to patient's non participation. This is a 30-year-old female very well known to this emergency department who was brought in by ambulance for evaluation of ripping and tearing abdominal pain. Evidently half-way during transport the patient decided that she no longer wanted to be transported the attempted to open the doors of the ambulance while the ambulance is moving. [employer] was called. The patient was transported to our facility. At the time of my examination the patient states that she has a abdominal pain that she had for a long time. She would not elaborate on any palliating or aggravating factors, with a not elaborate on previous diagnoses. Social history is unknown. Medication Reconciliation Allergies: Coded Allergies: bupropion (Verified Allergy, Intermediate, BAD THOUGHTS AND RASH, 03/20/25) furosemide (Verified Allergy, Unknown, 03/20/25) gluten (Unverified Allergy, Unknown, 03/20/25) ketorolac (Verified Allergy, Unknown, 03/20/25) Uncoded Allergies: WELBUTRIN (Allergy, Unknown, 03/20/25) Scheduled Duloxetine Hcl* (Cymbalta*), 40 MG PO DAILY, (Reported) Ferrous Gluconate (Ferrous Gluconate), 1 TAB PO DAILY, (Reported) Folic Acid* (Folic Acid*), 1 TAB PO DAILY, (Reported) Melatonin (Melatonin), 2 TAB PO HS, (Reported) Pantoprazole Sodium (PROTONIX tablet), 1 TAB PO DAILY, (Reported) Quetiapine Fumarate (Quetiapine Fumarate), 1 TAB PO HS, (Reported) Thiamine Mononitrate (Vitamin B-1), 100 MG PO DAILY, (Reported) Scheduled PRN Morphine Sulfate (Morphine Sulfate), 20 MG PO Q8H PRN for pain, (Reported) Review of Systems ROS Limited due to patient's non participation Physical Exam Physical Exam Physical Exam GENERAL: Awake, alert, oriented, GCS 15, no apparent distress, non-toxic appearing, answers questions, follows commands appropriately. [facility] Atraumatic, normocephalic, pupils equal, extraocular muscles intact, sclerae anicteric, mucus membranes moist, oropharynx is clear, no stridor. NECK: supple, full active range of motion, trachea midline, no thyromegaly, no lymphadenopathy, no JVD. CARDIOVASCULAR: regular rate/rhythm, no murmurs/gallops/rubs, Pulses are 2+ in all extremities and symmetric. Capillary refill less than 2 seconds. PULMONARY: Nonlabored, good air movement ,no respiratory distress, speaking in full sentences, clear to auscultation bilaterally, no wheezing, no ronchi, no rales, no accessory muscle use. GASTROINTESTINAL: Soft, non-tender, no guarding or rebound, non-distended, normal active bowel sounds, no organomegaly, no pulsatile masses, no CVA tenderness. NEUROLOGIC: Lucid with normal mental status. Normal facial symmetry. Moves all extremities symmetrically and with purpose. No truncal ataxia. Speech is fluid without evidence of dysarthria or aphasia, no focal deficits appreciated. MUSCULOSKELETAL: There is full range of motion of all extremities. There is no joint pain or joint swelling or joint erythema. There is no muscle pain or tenderness or swelling. EXTREMITIES: warm, well-perfused, no cyanosis, no clubbing, no edema, no acute deformities. Skin: warm, dry, no rashes or lesions, no jaundice, no petechiae orpurpura. No ecchymosis. PSYCHIATRIC: Hostile affect, normal insight, normal concentration. Medical Decision Making Additional information obtaine: other (EMS year) Findings Facility Status: ED Holds, [facility] process The plan was discussed with the patient, who demonstrates clear understanding of the plan and is in agreement with the plan unless otherwise noted in the chart. All questions have been answered, all concerns were addressed unless otherwise documented. I was available throughout their ED stay for frequent reassessment and questions. Differential Diagnoses (considered and possible or likely): [Differential diagnosis considered includes acute appendicitis, acute cholecystitis, pancreatitis, gastritis, PUD, diverticulitis, mesenteric ischemia, abdominal aortic aneurysm, bowel obstruction, enteritis, colitis, fecal impaction, volvulus, IBS, inflammatory bowel disease, specific food intolerance, peritonitis, perforated viscous, malignancy, UTI, abscess, and abdominal pain NOS. Pelvic source of pain was also considered including endometritis, dysm enorrhea, ovarian cyst, ovarian torsion, PID, TOA, cervicitis, vaginitis, or uterine fibroid. History, physical exam, and workup exclude many of the more serious causes listed above. ] ??Differential Diagnoses (considered and unlikely, not requiring evaluation currently): [See above] MDM Data Please see [facility] for the following: Independent Historians and external Records Review. Historian: [Patient] Independent Historians: ?[EMS] Medication Management: [Reviewed medication list] Social History and determinants: [Reviewed] Please see the body of the note for the following: Any independent interpretations of ECG, imaging studies. All vitals signs/haemodynamics, ordered tests were independently reviewed and interpreted by myself. Nursing triage complaint and vitals reviewed, additional nursing notes were reviewed as available and I agree unless otherwise noted or documented in contradiction in the chart Vital Signs: Independently reviewed Labs: Independently interpreted Imaging: Independently interpreted Old Medical Records: Independently reviewed, see [facility] for relevant summary and information Additionally notably showing: [The patient declined vital signs] Tests considered but not ordered include: [Typical abdominal pain workup including blood work and CT, possibly ultrasound, has been considered. Given description of pain as a ripping, CT angiography has been considerably. However patient declines any workup and desires to go.] Social Determinants of Health Impact: Patient was evaluated in [facility] [place] to healthcare due to below par ratio of patient to medical providers. [] Comorbid Conditions Impacting Present Evaluation and Care/Treatment: [None provided by the patient] Management Discussions with other Healthcare Providers: [Not applicable] Treatment and Disposition Medication Management (Given or considered): []. See EMR for details Consideration for Hospitalization/Escalation/Deescalation of Care: Admission for observation has been considered, however the patient refused workup and expressed her desire to leave against medical advice. ?ED Course:?[The patient is alert and oriented, there is no legal reason to hold her against her will. The patient was allowed to leave against medical advice.] ?Shared decision making:?[] Code status:?FULL Please see the full Electronic Medical Record for full details of nursing documentation, medications list, other records of complete past medical history and conditions, vital signs, laboratory studies, and any radiologic study interpretations by radiologists. Portions of this note were completed using [employer] dictation software and as a result there may exist minor errors in spelling. I have reviewed elements of past family and social history and agree as included in note. Differential Diagnosis See main note for the differential diagnosis Departure Disposition: LEFT AGAINST MEDICAL ADVICE Impression: Primary Impression: Abdominal Pain Condition: Stable Referrals: NO PRIMARY CARE PROVIDER (PCP) Signature Scribe Signature: No scribe Attestation: Date: Aug 01, 2025 Time: 13:41 This note accurately reflects clinical decisions, work performed by myself, DO JAYLEN Nelson NICHOLAS M DO Aug 01, 2025 13:41
== END 2025-08-01 13:36 | disposition left against medical advice (07) ==
LOC: ER 13:17
DX: R10.9 Unspecified abdominal pain (principal); Z88.8 Allergy status to other drugs, medicaments and biological substances
CPT/HCPCS: 99283